=== PATIENT | male | born 2005 | race Caucasian/White ===

== ENCOUNTER 2024-06-12 13:41 | Emergency (ER) | payer OTHER, MEDICAID, SELFPAY ==
[2024-06-12 14:15] VITALS: BP 105/61; PULSE 63; TEMP 36.6; O2SAT 97; BMI 17.0
--- NOTE | 2024-06-12 14:21 | XR_ITS ---
The [address] [address] Patient Name: ELAINE SINGH MRN: [id number] date: 2005 Sex: M Assigned Patient Location: ER Current Patient Location: ER Accession/Order Number: [id number] Exam Date: 06/12/2024 14:24 Report Date: 06/12/2024 14:52 At the request of: HEIKE READ Procedure: XR foot RT min 3V EXAM: XR foot RT min 3V HISTORY: pain COMPARISON: None. TECHNIQUE: 3 views right foot FINDINGS: No acute displaced fracture or dislocation is evident. Lisfranc joint appears congruent on this nonweightbearing study. The midfoot is congruent. XR/XR foot RT min 3V IMPRESSION: Negative radiographic evaluation for fracture. Electronically authenticated by: FRITZ SCHUMACHER Date: 06/12/2024 14:52
--- NOTE | 2024-06-12 15:13 | ED.LOWEXI1 ---
HPI HPI - Extremity Injury (Lower) General Chief Complaint: Extremity Injury, Lower Stated Complaint: pain in lower extremity Time Seen by Provider: 06/12/24 14:49 Source: patient and family Mode of arrival: walk-in History of Present Illness HPI Narrative: Patient is a 18-year-old male with a history of autism who presents to the emergency department for pain in the right medial foot since yesterday. He is accompanied by his mother who provides the history and states that the patient injured his foot. He was playing basketball. Tylenol was given this morning. No other medications. He is not noted to have any swelling, ecchymosis or obvious deformity. Patient is ambulatory Related Data Previous Rx's ?Medication ?Instructions ?Recorded ibuprofen 600 mg tablet 600 mg PO Q8H PRN pain #10 tabs 06/12/24 Allergies Allergy/AdvReac Type Severity Reaction Status Date / Time No Known Drug Allergies Allergy Verified 06/12/24 14:15 Opioid HPI Opioid Management Most Recent Pain and Opioid Data: No Data to Display Review of Systems ROS Constitutional Denies: fever or chills Ears, nose, mouth, and throat Denies: throat pain, nasal discharge or nasal congestion Respiratory Denies: shortness of breath Gastrointestinal Denies: nausea or vomiting Musculoskeletal Reports: extremity pain; Denies: back pain or neck pain Integumentary/Breast Denies: rash or skin pain Neurological Denies: numbness in extremities or weakness in extremities Hematologic/Lymphatic Denies: easy bruising or easy bleeding Exam Narrative Exam Narrative: Gen.: Awake, alert, in no distress Head: Normocephalic, atraumatic ENT: Moist mucous membranes Respiratory: No respiratory distress Extremities: Moves extremities equally, no swelling, ecchymosis or obvious deformity of the right foot with 2+ right DP pulse and normal flexion and extension of the toes of the right foot. No plantar wounds or redness noted. No bony tenderness or obvious deformity of the right ankle or tib-fib Psych: Normal mood and affect Neuro: No focal neuro deficit, developmentally delayed but cooperative Skin: Warm, dry, intact Constitutional Vital Signs, click to edit/add: Last Vital Signs Temp 98 F 06/12/24 14:15 Pulse 63 06/12/24 14:15 Resp 16 06/12/24 14:15 BP 105/61 06/12/24 14:15 Pulse Ox 97 06/12/24 14:15 O2 Del Method Room Air 06/12/24 14:15 Course Vital Signs Vital signs: Vital Signs Temperature 98 F 06/12/24 14:15 Pulse Rate 63 06/12/24 14:15 Respiratory Rate 16 06/12/24 14:15 Blood Pressure 105/61 06/12/24 14:15 Pulse Oximetry 97 06/12/24 14:15 Oxygen Delivery Method Room Air 06/12/24 14:15 Temperature 98 F 06/12/24 14:15 Pulse Rate 63 06/12/24 14:15 Respiratory Rate 16 06/12/24 14:15 Blood Pressure 105/61 06/12/24 14:15 Pulse Oximetry 97 06/12/24 14:15 Oxygen Delivery Method Room Air 06/12/24 14:15 MDM - Extremity Injury (Lower) MDM Narrative Medical decision making narrative: X-rays reviewed by the radiologist with no evidence of fracture or dislocation. Chencho bandage and postop shoe applied and the patient remains neurovascularly intact. Ibuprofen given. Rest, ice, elevate. Return to the ER if symptoms change or worsen SUPERVISED APC VISIT, PHYSICIAN ATTESTATION: Based on the medical record the care appears appropriate. ? Medical Records Attestation: I reviewed the patient's medical records. Imaging Data XR foot: Attestation: I have reviewed the pertinent imaging results. Radiologist's impression: ITS Impressions Foot X-Ray 06/12/24 14:21 IMPRESSION: Negative radiographic evaluation for fracture. Electronically authenticated by: FRITZ SCHUMACHER Date: 06/12/2024 14:52 Discharge Plan Discharge Chief Complaint: Extremity Injury, Lower Clinical Impression: Right foot sprain Patient Disposition: Home, Self-Care Time of Disposition Decision: 15:18 Condition: Good Prescriptions / Home Meds: New ibuprofen 600 mg tablet 600 mg PO Q8H PRN (Reason: pain) Qty: 10 0RF Print Language: Kiswahili Instructions: Foot Sprain (ED) Referrals: CRISTIAN COLLINS [Primary Care Provider] - 1 week
[2024-06-12] MEDS: IBUPROFEN 200 MG/10 ML ORAL.SUSP 520 MG PO (15:25)
--- NOTE | 2024-06-12 15:30 | PC.NURSE ---
phuong wrap applied with post op shoe pt tolerates well
== END 2024-06-12 15:32 | disposition home or self-care (01) ==
PROVIDERS: Emergency Provider Emergency Medicine; PCP Family Medicine
DX: S93.601A Unspecified sprain of right foot, initial encounter (principal); Y93.67 Activity, basketball; F84.0 Autistic disorder
CPT/HCPCS: 73630; 99283

== ENCOUNTER 2024-07-13 05:59 | Emergency (ER) | payer OTHER, MEDICAID, SELFPAY ==
[2024-07-13 06:04] VITALS: BP 120/78; PULSE 66; TEMP 36.9; O2SAT 96; BMI 18.5
--- OUTSIDE RECORDS SUMMARY | 2024-07-13 06:13 | XMS_ITS | CCD ---
Author Organization [facility] CliniSy[facility] Care Team Providers Care Physical Education Instructor Name Role Phone Murali Deidre Haritha Attending Unavailable Murali, Deidre Haritha Referring Unavailable Murali, Deidre Haritha Primary Care Unavailable Wiznitzer, Max Attending Unavailable Murali, Deidre Haritha Referring Unavailable Murali, Deidre Haritha Primary Care Unavailable Murali, Deidre A Unavailable Unavailable Wiznitzer, Max Unavailable Unavailable Murali, Deidre A Unavailable Unavailable Wiznitzer, Max Unavailable Unavailable Splawski, Tory Unavailable Unavailable Murali, Deidre A Unavailable Unavailable Murali, Deidre A Unavailable Unavailable Murali, Deidre A Unavailable Unavailable Wiznitzer, Max Unavailable Unavailable MURALI, DEIDRE Attending Unavailable MURALI, DEIDRE Consulting Unavailable MURALI, DEIDRE Admitting Unavailable Murali, Deidre A Unavailable Unavailable Murali Deidre SORENSON Unavailable Unavailable Hung Amin MD Unavailable Unavailable Murali, Deidre A Unavailable Unavailable Unavailable MD Deidre Carrion Primary Care Provider MD Hung Amin Attending Provider Deidre Carrion A Primary Care Provider Deidre Carrion MD Primary Care Provider Miguel Clements MD Unavailable CALI CARRIONBERCARLOS Tee Attending Unavailable MURALI DEIDRE A Primary Care Unavailable Allergies Allergy Classification Reported Allergen(s) Allergy Type Date of Onset Reaction(s) Facility (8 sources) glutenin; Translations: [GLUTEN] allergy to substance 07-03-2019 [facility] 3 Repository (2 sources) Wheat gluten extract Drug Allergy 07-03-2019 [facility] Medications Completed/Discontinued Medications Medication Drug Class(es) Dates Sig (Normalized) Sig (Original) acetaminophen 21.7 mg/ml / dextromethorphan hydrobromide 0.667 mg/ml / phenylephrine hydrochloride 0.333 mg/ml oral solution (2 sources) Uncompetitive A-nodcbs-C-aspart ate Receptor Antagonist, Sigma-1 Agonist, alpha-1 Adrenergic Agonist Vicks DayQuil Cold & Flu 10-5-325 MG/15ML Oral Liquid Refills: 0 Active cyproheptadine hydrochloride 4 mg oral tablet (5 sources) Start: 0 take 1 tablet by mouth at bedtime Cyproheptadine HCl - 4 MG Oral Tablet TAKE 1 TABLET AT BEDTIME. Quantity: 30 Refills: 3 Tory Sanchez MD Start : 04-Sep-2019 Active 24 hr dexmethylphenidate hydrochloride 15 mg extended release oral capsule (20 sources) Central Nervous System Stimulant Start: 0 take 1 capsule by mouth once daily Dexmethylphenidate HCl ER 15 MG Oral Capsule Extended Release 24 Hour TAKE 1 CAPSULE Daily Quantity: 30 Refills: 0 Eloisa SORENSON, Max Start : 02-Apr-2020 Active Start: 04-02-2020 take 1 capsule by [facility] once daily Dexmethylphenidate HCl ER 15 MG Oral Capsule Extended Release 24 Hour TAKE 1 CAPSULE Daily Quantity: 30 Refills: 0 Eloisa SORENSON, Max Start : 02-Apr-2020 Active Start: 11-30-2019 take 1 capsule by [facility] once daily Dexmethylphenidate HCl ER 15 MG Oral Capsule Extended Release 24 Hour TAKE 1 CAPSULE Daily Quantity: 30 Refills: 0 Eloisa SORENSON, Max Start : 30-Nov-2019 Active Start: 09-02-2019 take 1 capsule by [facility] once daily Dexmethylphenidate HCl ER 15 MG Oral Capsule Extended Release 24 Hour TAKE 1 CAPSULE Daily Quantity: 30 Refills: 0 Eloisa SORENSON, Max Start : 02-Oct-2019 Active Start: 08-15-2019 take 1 capsule by [facility] once daily in the morning Dexmethylphenidate HCl ER 10 MG Oral Capsule Extended Release 24 Hour TAKE 1 CAPSULE Every morning Quantity: 30 Refills: 0 Eloisa SORENSON, Max Start : 15-Aug-2019 Active Start: 08-15-2019 take 1 capsule by [facility] once daily in the morning Dexmethylphenidate HCl ER 10 MG Oral Capsule Extended Release 24 Hour TAKE 1 CAPSULE Every morning Quantity: 30 Refills: 0 Eloisa SORENSON, Max Start : 15-Aug-2019 Active Start: 12-16-2018 take 1 capsule by [facility] once daily in the morning Dexmethylphenidate HCl ER 10 MG Oral Capsule Extended Release 24 Hour TAKE 1 CAPSULE DAILY IN THE MORNING. Quantity: 30 Refills: 0 Eloisa SORENSON, Max Start : 15-Jul-2019 Active multivitamin tablet (1 source) take 1 tablet by mouth once daily multivitamin tablet Take 1 tablet by mouth once daily. 0 Active Comment on above: Take 1 tablet by prud[facility] once daily. sertraline 25 mg oral tablet (1 source) Serotonin Reuptake Inhibitor Start: 8 take 1 tablet by mouth once daily Sertraline HCl - 25 MG Oral Tablet TAKE 1 TABLET BY MOUTH EVERY DAY DIRECTED Quantity: 30 Refills: 5 Eloisa SORENSON, Max Start : 03-Feb-2018 Active 1.5 ml somatropin 10 mg/ml pen injector (9 sources) Recombinant Human Growth Hormone Start: 1 Norditropin FlexPro 15 MG/1.5ML Subcutaneous Solution Pen-injector Quantity: 6 Refills: 0 Ordered: 23-Aug-2020 DO Start : 22-Aug-2020 Active Problems Active Problems Problem Classification Problem Date Documented Da te Episodic/Chronic Allergic reactions (9 sources) Gluten sensitivity; Translations: [Celiac disease] Resolved: 07-29-2020 02-06-2024 Chronic Allergic reactions (8 sources) Eczema; Translations: [Gluten sensitivity] Episodic Anxiety disorders (20 sources) Anxiety; Translations: [Anxiety state, unspecified] Onset: 2023 2023 Chronic Attention-deficit conduct and disruptive behavior disorders (17 sources) Attention deficit hyperactivity disorder; Translations: [Attention deficit disorder with hyperactivity] Onset: 2023 2023 Chronic Blindness and vision defects (16 sources) Wears glasses; Translations: [Other specified conditions influencing health status] Episodic Developmental disorders (20 sources) Speech delay; Translations: [Intellectual disability] Onset: 11-03-2009 11-03-2009 Chronic Disorders usually diagnosed in infancy childhood or adolescence (20 sources) Tic; Translations: [Tic disorder] Onset: 2023 2023 Chronic Genitourinary symptoms and ill-defined conditions (2 sources) Urinary incontinence; Translations: [Urinary incontinence] Chronic Immunizations and screening for infectious disease (2 sources) Patient encounter status; Translations: [Other specified vaccination] Episodic Miscellaneous mental health disorders (1 source) Eating disorder; Translations: [Other specified eating disorder] Onset: 02-05-2007 04-09-2010 Chronic Other bone disease and musculoskeletal deformities (2 sources) Delayed bone age; Translations: [Other specified disorders of bone density and structure, unspecified site] Onset: 06-15-2020 06-16-2021 Episodic Other congenital anomalies (7 sources) Chromosomal abnormality, unspecified; Translations: [Genetic disorder] Chronic Other congenital anomalies (10 sources) [id number] microdeletion syndrome; Translations: [Other specified congenital anomalies] Onset: 2023 07-30-2023 Chronic Other congenital anomalies (1 source) 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; 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, unspecified] Onset: 09-13-2008 09-13-2008 Chronic Other congenital anomalies (1 source) Chromosomal disorder; Translations: [Chromosomal abnormality, unspecified] Onset: 11-29-2008 11-29-2008 Chronic Other congenital anomalies (1 source) Congenital anomaly of face; 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, unspecified] Onset: 08-06-2019 08-06-2019 Chronic Other gastrointestinal disorders (1 source) Celiac disease; Translations: [Celiac disease] Onset: 08-06-2019 08-06-2019 Chronic Other nutritional; endocrine; and metabolic disorders (11 sources) Decreased body mass index; Translations: [Body Mass Index, pediatric, less than 5th percentile for age] Onset: 06-15-2020 06-16-2021 Episodic Other nutritional; endocrine; and metabolic disorders (2 sources) Short stature disorder; Translations: [Short stature (child)] Onset: 08-06-2019 06-16-2021 Episodic Other nutritional; endocrine; and metabolic disorders (2 sources) Body mass index (BMI) pediatric, less than 5th percentile for age; Translations: [Body mass index (BMI) pediatric, less than 5th percentile for age] Onset: 07-30-2023 Episodic Residual codes; unclassified (6 sources) Daytime somnolence; Translations: [Hypersomnia, unspecified] Onset: 2023 2023 Chronic Residual codes; unclassified (6 sources) Staring; Translations: [Transient alteration of awareness] Onset: 2023 2023 Episodic Residual codes; unclassified (1 source) History of adenoidectomy; Translations: [Acquired absence of other organs] 02-06-2024 Episodic Screening and history of mental health and substance abuse codes (16 sources) H/O: psychiatric disorder; Translations: [Personal history of other mental disorders] Episodic Unclassified (2 sources) CONTACT W/AND (SUSP) EXPOS COVID-19; Translations: [CONTACT W/AND (SUSP) EXPOS COVID-19] Onset: 10-28-2020 Viral infection (1 source) COVID-19; Translations: [COVID-19] Onset: 10-28-2020 Past or Other Problems Problem Classification Problem Date Documented Da te Episodic/Chronic Genitourinary symptoms and ill-defined conditions (14 sources) H/O: urinary disease; Translations: [Personal history of other specified urinary system disorders] Resolved: 09-04-2019 Episodic Other congenital anomalies (1 source) [id number] microdeletion syndrome; Translations: [Chromosome 3s25-q16 microdeletion syndrome] Other gastrointestinal disorders (20 sources) Abdominal distension, gaseous; Translations: [Flatulence, eructation, and gas pain] Resolved: 06-19-2016 Episodic Other hematologic conditions (1 source) ESR raised; Translations: [Elevated erythrocyte sedimentation rate] Onset: 06-15-2020 06-15-2020 Episodic Other infections; including parasitic (5 sources) H/O: viral illness; Translations: [Personal history of other infectious and parasitic diseases] Resolved: 12-27-2021 Episodic Other inflammatory condition of skin (10 sources) Seborrheic dermatitis of scalp; Translations: [Seborrhea capitis] Onset: 2023 Resolved: 2023 2023 Episodic Other lower respiratory disease (5 sources) History of clinical finding in subject; Translations: [Personal history of other diseases of respiratory system] Resolved: 12-27-2021 Episodic Other lower respiratory disease (1 source) Snoring; Translations: [Snoring] Onset: 08-18-2009 08-18-2009 Episodic Other male genital disorders (1 source) Disorder of male genital organ; Translations: [Other hydrocele] Onset: 08-06-2019 08-26-2019 Episodic Other nervous system disorders (1 source) Other symbolic dysfunctions; Translations: [Other symbolic dysfunction] Onset: 09-13-2008 09-13-2008 Episodic Other nutritional; endocrine; and metabolic disorders (20 sources) Feeding problem; Translations: [Feeding difficulties and mismanagement] Resolved: 06-19-2016 Episodic Other nutritional; endocrine; and metabolic disorders (20 sources) Pediatric failure to thrive; Translations: [Failure to thrive] Resolved: 06-19-2016 Episodic Other nutritional; endocrine; and metabolic disorders (1 source) Delayed milestone; Translations: [Delayed milestone in childhood] Onset: 09-13-2008 09-13-2008 Episodic Other skin disorders (14 sources) Personal history of diseases of the skin and subcutaneous tissue; Translations: [H/O: eczema] Resolved: 09-04-2019 Episodic Other skin disorders (10 sources) Disorder of nail; Translations: [Unspecified disease of nail] Onset: 2023 Resolved: 2023 2023 Episodic Other upper respiratory infections (20 sources) Acute pharyngitis; Translations: [Acute pharyngitis, unspecified] Onset: 10-28-2020 Resolved: 12-27-2021 Episodic Residual codes; unclassified (16 sources) Disturbance in sleep behavior; Translations: [Sleep disturbance, unspecified] Resolved: 06-19-2016 Episodic Unclassified (8 sources) Intellectual disability; Translations: [Intellectual disability] Unclassified (8 sources) Decreased body mass index; Translations: [BMI (body mass index), pediatric, less than 5th percentile for age] Unclassified (8 sources) Patient encounter status; Translations: [Encounter for routine child health examination without abnormal findings] Unclassified (1 source) CONTACT W/AND (SUSP) EXPOS COVID-19; Translations: [CONTACT W/AND (SUSP) EXPOS COVID-19] Onset: 10-24-2020 Viral infection (9 sources) Other specified viral infection; Translations: [Disease caused by 2019-nCoV] Resolved: 11-09-2020 Episodic NEGATED: Highlighted row has not occurred!Residual codes; unclassified (20 sources) Disease Episodic Results Test Name Value Interpretation Reference Range Facility Office Visit ([facility] [place])on 12-27-2021 Follow-up visit Diagnoses/Problems Staring episodes (780.02) (R40.4) Excessive daytime sleepiness (780.54) (G47.19) *Orders Excessive daytime sleepiness Pediatric - Sleep Medicine Referral Evaluation and Treatment Evaluate AND Treat Status: Hold For - Scheduling Requested for: 27Dec2021 AMA Intake Activity Log Entry by Jeanie Biggs ([email or web address]) on 2022-01-02 09:08 Status Change: To Scheduling in Process - Sending Letter in 7 days, LVM Excessive daytime sleepiness (780.54) (G47.19) Patient Discussion/Summary Elaine had a staring spell. While a seizure was suspected, he has daytime sleepiness that suggests that the event may be sleep related. With his sleep history (snoring, gasps, and movement), it is worthwhile to evaluate his sleep despite past assessments. 1. Refer to Pediatric Sleep Medicine. 2. Watch for other paroxysmal events. 3. Follow up as needed. Chief Complaint Patient here for follow up visit. Accompanied by mother. History of Present Illness Elaine is a 15 year old boy with ADHD and anxiety. He is off sertraline 25 mg and dexmethylphenidate ER 15 mg qAM He is able to attend in school with the more relaxed classroom environment. He speaks in a soft voice. He interacts with classmates. He picks at his cuticles or knuckles. Elaine had episode of staring with no response during a speech therapy group session. Subsequent EEG was normal. Elaine goes to bed around 10:30 PM with sleep onset soon afterwards. He gets up at 5 AM (when father going to work) and falls back to sleep on the couch, getting up at 6 AM for school. He wants to nap after school. He moves a lot in sleep and is crabby when awakening. He had a sleep study for snoring that was reportedly normal. He continues to have excessive daytime sleepiness. Elaine finished 11th grade in a self contained classroom and an IEP with in person classes this school year. 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 Review of Systems All other systems have been reviewed with no other pertinent positives except reintroduction of gluten with tolerance and use of cyproheptadine for appetite enhancement with a positive effect on sleep. 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 He is on growth hormone replacement. He had a normal sleep study. 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) Encounter for routine child health examination without abnormal findings (V20.2) (Z00.129) History of Failure to thrive (0-17) (783.41) (R62.51) History of Feeding difficulties (783.3) (R63.30) History of Gaseous abdominal distention (787.3) (R14.0) Intellectual disability (319) (F79) Nail lesion (703.9) (L60.9) Seborrhea capitis in pediatric patient (690.11) (L21.0) Tic (307.20) (F95.9) Anxiety (300.00) (F41.9) Attention deficit hyperactivity disorder (ADHD) (314.01) (F90.9) History of Failure to thrive (0-17) (783.41) (R62.51) History of Feeding difficulties (783.3) (R63.3) Eczema (692.9) (L30.9) Urinary incontinence (788.30) (R32) Past Medical History Acute pharyngitis, unspecified etiology (462) (J02.9) Resolved Date: 03 Nov 2020 History of Acute pharyngitis, unspecified etiology (462) (J02.9) Resolved Date: 30 Oct 2016 Anxiety (300.00) (F41.9) COVID-19 virus infection (079.89) (U07.1) Resolved Date: 09 Nov 2020 History of Failure to thrive (0-17) (783.41) (R62.51) Resolved Date: 19 Jun 2016 History of Feeding difficulties (783.3) (R63.30) Resolved Date: 19 Jun 2016 History of Gaseous abdominal distention (787.3) (R14.0) Resolved Date: 19 Jun 2016 History of Gluten intolerance (579.0) (K90.41) Resolved Date: 29 Jul 2020 History of attention deficit hyperactivity disorder (ADHD) (V11.8) (Z86.59) History of eczema (V13.3) (Z87.2) Resolved Date: 04 Sep 2019 History of sore throat (V12.69) (Z87.09) History of urinary incontinence (V13.09) (Z87.898) Resolved Date: 04 Sep 2019 History of viral infection (V12.09) (Z86.19) History of Sleep disturbances (780.50) (G47.9) Resolved Date: 19 Jun 2016 History of Speech delay (315.39) (F80.9) History of Tic disorder (307.20) (F95.9) History of URI, acute (465.9) (J06.9) History of Wears glasses (V49.89) (Z97.3) Anxiety (300.00) (F41.9) History of Failure to thrive (0-17) (783.41) (R62.51) History of Feeding difficulties (783.3) (R63.3) Surgical History History of Adenoidectomy History of Ear Pressure Equalization Tube, Insertion, Bilaterally History of Surgery Tunica Vaginalis Excision Of Hydrocele Left Family History Family history of migraine headaches (V17.2) (Z82.0) Family history of systemic lupus erythematosus (V19.4) (Z82.69) Family history of asthma (V17.5) (Z82.5) Family history of cardiac disorder (V17.49) (Z82.49) Family history of type 2 diabet (more content not included)... Normal [facility] Pediatric Medicine 12-17on 0 11-16-2021 Pediatric Medicine 06-30 Diagnosis/Problems Assessed Sore throat (462) (J02.9) URI, acute (465.9) (J06.9) Viral syndrome (079.99) (B34.9) Patient Discussion/Summary call back if worse or not improved as discussed ibuprofen as needed for pain and fever. FOLLOW-UP: Call or return to clinic if worse, new symptoms, or not improved in 2-[address]. [address] History of Present Illness dad patient with complaint of [ ST] last two dayss some malaise congestion mom looked back and seemed red swallowing ok no drooling no breathing diff lg fever 100 onset 2 day can drink worse with swallowing General: fever 100 days ; decreased appetite; normal PO fluids; normal activity; sleeping ok. 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) Encounter for routine child health examination without abnormal findings (V20.2) (Z00.129) History of Failure to thrive (0-17) (783.41) (R62.51) History of Feeding difficulties (783.3) (R63.30) History of Gaseous abdominal distention (787.3) (R14.0) Intellectual disability (319) (F79) Nail lesion (703.9) (L60.9) Seborrhea capitis in pediatric patient (690.11) (L21.0) Tic (307.20) (F95.9) Past Medical History Problems Acute pharyngitis, unspecified etiology (462) (J02.9) Resolved Date: 03 Nov 2020 History of Acute pharyngitis, unspecified etiology (462) (J02.9) Resolved Date: 30 Oct 2016 Anxiety (300.00) (F41.9) COVID-19 virus infection (079.89) (U07.1) Resolved Date: 09 Nov 2020 History of Failure to thrive (0-17) (783.41) (R62.51) Resolved Date: 19 Jun 2016 History of Feeding difficulties (783.3) (R63.30) Resolved Date: 19 Jun 2016 History of Gaseous abdominal distention (787.3) (R14.0) Resolved Date: 19 Jun 2016 History of Gluten intolerance (579.0) (K90.41) Resolved Date: 29 Jul 2020 History of attention deficit hyperactivity disorder (ADHD) (V11.8) (Z86.59) History of eczema (V13.3) (Z87.2) Resolved Date: 04 Sep 2019 History of urinary incontinence (V13.09) (Z87.898) Resolved Date: 04 Sep 2019 History of Sleep disturbances (780.50) (G47.9) Resolved Date: 19 Jun 2016 History of Speech delay (315.39) (F80.9) History of Tic disorder (307.20) (F95.9) History of Wears glasses (V49.89) (Z97.3) Surgical History Problems History of Adenoidectomy History of Ear Pressure Equalization Tube, Insertion, Bilaterally History of Surgery Tunica Vaginalis Excision Of Hydrocele Left Family History Mother Family history of migraine headaches (V17.2) (Z82.0) Maternal Aunt Family history of systemic lupus erythematosus (V19.4) (Z82.69) Paternal Uncle Family history of asthma (V17.5) (Z82.5) Multiple Family Members Family history of cardiac disorder (V17.49) (Z82.49) Paternal Relatives Family history of type 2 diabetes mellitus (V18.0) (Z83.3) Social History Problems Brother Drinks city water Lives with parents No tobacco/smoke exposure Pets/Animals: Cat Pets/Animals: Dog Allergies Medication No Known Drug Allergies Recorded By: Hung Amin; 04/04/2014 7:26:22 PM Current Meds Medication NameInstruction Norditropin FlexPro 15 MG/1.5ML Subcutaneous Solution Pen-injector Vitals Vital Signs Recorded: [id number] 02:35PM Npwwlypikkb16.7 F [id number] lb 6 oz 2-20 Weight Percentile1 % Physical Exam General Appearance: not ill appearing, moves well, alert. big smile polite HEENT: Eyes: non-injected. Ears: tympanic membranes pearly w/ good landmarks. Nose: clear watery dc Oropharynx: mild red, no exudate, and tonsils not enlarged. pnd, tongue wnl Neck: supple, no lymphadenopathy. Cardiovascular System: Heart Sounds: RRR with no murmur. Lungs: Auscultation: no wheezing, rales/crackles, or retractions and clear to auscultation bilaterally. Abdomen: Palpation: no tenderness. Skin: clear Signatures Electronically signed by : Miguel Clements MD; Nov 16 2021 3:02PM EST (Author) Normal [facility] EEG awake asleepon 2 EEG awake asleep [facility] Main [place] [address] [place] [id number] Electroencephalogram Report Signed Patient: Elaine Singh MR#: [id number] 80 : 2005 Acct:[id number] Age/Sex: 16 / M ADM Date: 10/13/21 Loc: Room: Type: [facility] Attending Dr: Hung Amin MD Ordering Provider: Hung Amin MD Date of Service: 10/13/21 EEG/EEG awake asleep: q93.88 Copies to: DO Hung Oreilly MD A 1 hour long EEG. 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 Not clear based on documentation provided to me whether or not he has history of seizures. No seizure medications are listed. TECHNICAL INFORMATION: This 1 hour and 47 second long EEG was performed using the standard International 10-20 system of lead placement. All data was obtained digitally and is available for reformatting and remontaging. Simultaneous electrocardiogram monitoring was performed during the recording. DESCRIPTION OF EEG RECORDING: Posterior dominant rhythm was typically apparent, was of high amplitude, was generally 10 Hz, and appropriately attenuated with eye opening. There was intermittent bifrontal slowing to about 4.5 Hz lasting for several seconds. Electrical activity is generally of symmetric amplitude between hemispheres and from anterior to posterior. Photic stimulation was used as an activating procedure and resulted in anterior photic driving at the low frequency flashes and no concerning associated epileptiform activity. Hyperventilation was not performed. A large amount of electrographic sleep was observed, with high amplitude vertex waves, K complexes, and spindle activity. No definitive epileptiform activity was seen throughout the entirety of the recording. No significant or interpretation limiting artifact seen. IMPRESSION: Mildly abnormal 1 hour long EEG. Background rhythm generally normal, but was interrupted by infrequent intermittent bifrontal slowing. No seizures were seen. No definitive epileptiform activity was seen. This study did not offer any definitive evidence of an increased propensity for seizure, but if there is high suspicion, consider repeat study or more prolonged studies. Transcribed By: MIO 10/17/21 1627 Dictated By: Gagan Patterson DO 10/16/21 1734 Signed By: 10/18/21 1635 [facility] OBSOLETEon 06-22-2021 OBSOLETE Refill (PENDMN) ELAINE SINGH ([id number]) 3 M Date Time Provider Department 06/22/21 HAO WILKINS PENDMN During your visit today, we recorded the following information about you: Avelina Vallejo 06/22/2021 2:32 PM Signed Patient has been identified by name and date of : Yes Pending Prescriptions Disp Refills NORDITROPIN FLEXPRO 15 MG/1.5 ML (10 MG/ML) SUBCUTANEOUS PEN INJECTOR 6 mL 7 Sig: INJECT 1.6 MG UNDER THE SKIN SIX DAYS PER WEEK. MARTITA: No RX INSTRUCTIONS: Patient aware RX will be sent to pharmacy. No need to notify patient. Date of last visit: 01/12/2021 Date of next endo appointment: NA 30 day supply. of medication requested Pharmacy: [facility] Avelina Vallejo Allergies As of Date: 06/22/2021 Noted Allergy Reaction GLUTEN 07/03/2019 16 - Unknown Comments: Gluten sensitivity Date Reviewed: 01/12/2021 Reviewed by: Kylee Garduno) MARY Muñoz - Fully Assessed Reason for Visit: Refill Request [94] Visit Diagnosis:Short stature disorder [R62.52] Order(s):Somatropin (NORDITROPIN FLEXPRO) 15 mg/1.5 mL (10 mg/mL)INJECT 1.6 MG UNDER THE SKIN SIX DAYS PER WEEK.Disp: 6 mLRfl: 7 Prescriptions as of 06/22/2021 - Somatropin (NORDITROPIN FLEXPRO) 15 mg/1.5 mL (10 mg/mL) INJECT 1.6 MG UNDER THE SKIN SIX DAYS PER WEEK. - multivitamin tablet Take 1 tablet by mouth once daily. 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 Medications Discontinued During This Encounter Prescriptions - Somatropin (NORDITROPIN FLEXPRO) 15 mg/1.5 mL (10 mg/mL) (Discontinued) INJECT 1.6 MG UNDER THE SKIN SIX DAYS PER WEEK. 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 RESULT: Bone age according to the standards of Jose Luis Gonzalez and Marquez Peacockelizabeth (ISBN [phone] [facility] Control Number: [id number]) is 13 years. Chronologic age is 15 year and 11 months. Patient's bone age is 2.6 standard deviations below the chronologic age. IMPRESSION: Delayed bone age. Timber Framer Helper: DANN Transcribe Date/Time: Jun 16 2021 4:48P Dictated by : LAZARA MAX MD This examination was interpreted and the report reviewed and electronically signed by: LAZARA MAX MD on Jun 16 2021 4:50PM EST [id number] Normal [facility] 06-09-2021 CNPN Telephone (PENDMN) ELAINE SINGH ([id number]) 3 M T Date Time Provider Department 06/09/21 HAO WILKINS During your visit today, we recorded the following information about you: Nicki Lainez [facility] 06/09/2021 8:28 AM Signed Patient's Name: Elaine Singh Caller's Name: Mom Relation to Patient: Mom Reason for Call: Mom called and stated she placed refill for Nordotropin, [facility] informed her that pharmacy has not been able to get Norditropin Flexpro 15mg pen since April. Please advise what dosage patient can have. Mom sts that she doesn't want lapse in medication. Nicki Lainez [facility] Hao Wilkins MD 06/09/2021 9:05 AM Signed Dose is 1.6mg x6 days--- appreciate nurses putting in scripts for me to sign Rachel Mendez RN 06/09/2021 10:09 AM Signed I called [facility]. They have 15mg pen in stock. They stated that they could not get in touch with family for all of April and therefore script was placed on hold. They have current dosing for Norditropin. Mom notified. Nicki Lainez [facility] 06/09/2021 12:46 PM Signed Patient has been identified by name and date of : Yes Type of form: Prior Authorization -Norditropin FlexPro 15MG/1.5 Pen-injector Form received via: Fax When form is completed, fax form to fax number provided. [facility] Rachel Mendez RN 06/09/2021 4:19 PM Signed PA started on Cover My Meds however pt bone age has not been completed. I spoke with mom. They will complete the bone age and let us know. Mom aware that we will not be doing PA until we hear from her. Avelina Yoni 06/19/2021 3:00 PM Signed Patient have bone age done on 06/16. Mom asking for results and calling to let us know so we can move forward with PA Haritha Valerio RN 06/19/2021 3:59 PM Signed Norditropin PA completed/submitted on CoverMyMeds. Hao Wilkins MD 06/20/2021 8:32 AM Signed His bones looked like a 13 year old so he will likely have at least 2 years where he can be on growth hormone. The nurses submitted the prior auth as shown Thanks for calling family to let them know Avelina Yoni 06/20/2021 10:28 AM Signed Spoke with mom, mom expressed understanding Haritha Valerio RN 06/21/2021 11:03 AM Addendum Norditropin PA approved, valid 05/20/21-06/20/22. . GH list updated. Nicki Motaers [facility] 11/20/2021 4:38 PM Signed Mom states insurance changed to [place] back in September and she was told her co-pay would be $2000.00 verse $40. I transferred mom to call center to give updated insurance information. Haritha Valerio RN 11/21/2021 2:36 PM Signed Called AND spoke with mom. She has tried to update insurance, but has been transferred to several different people in the process. The last workforce services representative she spoke with stated that she should just schedule an appointment and while they schedule the appt, they can update insurance at that time. Did recommend to mom that they schedule an appointment as he was last seen in January 2021. [employer]: [id number] [employer] member number: [id number] Pharmacy Services: [phone] Discussed insurance coverage with mom - issue could be a new PA is needed, could be they have a high deductible plan AND the deductible has to be met before insurance will pay for their part. Mom does have the information to [facility] to speak with them re: co-pay assistance. Message also sent to Angela at [facility] requesting she look into this as well. Haritha Valerio RN 11/23/2021 3:28 PM Signed Per Angela at [facility]: So, if I?m looking at the new plan correctly ? they have a high out of pocket amount and that is probably why the high copay. She can go into the link below and apply for the copay card; she then needs to call [employer] back with the copay card info. ?. due to the demand in calls for copay assistance, there is now a website we direct patient/parents to https://www.[employer].ar m/ranjit/savings-c srinivas.html This allows the parents immediate access to the information to give to the pharmacy and to order medication faster. Called AND spoke with mom. Provided her the information above. Mom stated she did look into their plan and their annual hmr-yo-irviyr max excludes specialty medications. Mom will sign up for the [employer] card AND also look into other co-pay assistance. Allergies As of Date: 06/09/2021 Noted Allergy Reaction GLUTEN 07/03/2019 16 - Unknown Comments: Gluten sensitivity Date Reviewed: 01/12/2021 Reviewed by: Kylee Garduno) MARY Muñoz - Fully Assessed Reason for Visit: 2021 GROWTH HORMONE [Other] Prescriptions as of 11/23/2021 - Somatropin (NORDITROPIN FLEXPRO) 15 mg/1.5 mL (10 mg/mL) INJECT 1.6 MG UNDER THE SKIN SIX DAYS PER WEEK. - multivitamin tablet Take 1 tablet by mouth once daily. Problem List As Of D (more content not included)... Normal [facility] OBSOLETEon 04-22-2021 OBSOLETE Refill (PDENAM) ELAINE SINGH ([id number]) 3 M Date Time Provider Department 04/22/21 HAO WILKINS PDENAM During your visit today, we recorded the following information about you: Avelina Cook 04/24/2021 8:58 AM Signed Patient has been identified by name and date of : Yes Pending Prescriptions Disp Refills NORDITROPIN FLEXPRO 15 MG/1.5 ML (10 MG/ML) SUBCUTANEOUS PEN INJECTOR 6 mL 7 Sig: INJECT 1.6 MG UNDER THE SKIN SIX DAYS PER WEEK. MARTITA: No RX INSTRUCTIONS: Patient aware RX will be sent to pharmacy. No need to notify patient. Date of last visit: 01/12/2021 Date of next endo appointment: NA 30 day supply. of medication requested Pharmacy: [facility] Avelina Vallejo Allergies As of Date: 04/22/2021 Noted Allergy Reaction GLUTEN 07/03/2019 16 - Unknown Comments: Gluten sensitivity Date Reviewed: 01/12/2021 Reviewed by: Kylee Muñoz Ma - Fully Assessed Reason for Visit: Refill Request [94] Visit Diagnosis:Short stature disorder [R62.52] Order(s):Somatropin (NORDITROPIN FLEXPRO) 15 mg/1.5 mL (10 mg/mL)INJECT 1.6 MG UNDER THE SKIN SIX DAYS PER WEEK.Disp: 6 mLRfl: 7 Prescriptions as of 04/24/2021 - Somatropin (NORDITROPIN FLEXPRO) 15 mg/1.5 mL (10 mg/mL) INJECT 1.6 MG UNDER THE SKIN SIX DAYS PER WEEK. - multivitamin tablet Take 1 tablet by mouth once daily. 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 Medications Discontinued During This Encounter Prescriptions - Somatropin (NORDITROPIN FLEXPRO) 15 mg/1.5 mL (10 mg/mL) (Discontinued) Take 1.6mg under the skin 6 days a week Encounter Status:Closed by HARESH LEIVA on 04/24/21 Normal [facility] CNOVon 01-12-2021 CNOV Office Visit (PDENAM ) ELAINE SINGH ([id number]) 3 M Date Time Provider Department 01/12/21 4:00 PM HAO WILKINS During your visit today, we recorded the following information about you: Pulse Blood pressure Weight Height 80/minute 92/64 41.5 kg 1.636 m Hao Wilkins MD 01/12/2021 4:08 PM Signed [facility] Department of Pediatric Endocrinology Date of Service: January 12, 2021 PCP: Deidre Carrion MD Informant: Mother and Patient Records/charts: Reviewed I had the pleasure of seeing Elaine Singh, a 15 year old 5 month old male in our endocrinology clinic at [facility] For followup regarding their short stature managed on rGH 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 Past evaluations For (or likely affecting) growth include: -assessed by Dr Elizondo over 3 years ago (Jun 2015)-- initial screening was WNL. -previously evaluated by Dr Sanchez (peds GI at )-- scope confirmed celiac; has been on gluten free diet x2yrs; have not been seen by GI in many years -on ADHD meds since age 7y; last time meds with titrated was 2yrs -UDT and hydrocele requring orchidopexand hydrocelectomy y in 2014 -had recent followup with adult care manager Dr Mixon in 2018 (who referred to endo); he notes In addition, reviewed that based on 2017 ASCO publication, promoter region variants in PTEN gene have not been associated with increased risk of cancer. Hence by current evidence based guidelines, GH therapy in not contraindicated for Elaine. Jul 2019- initial endo consult with Dr Wilkins. AGA. Obie 2 with Right teste ~6-8 cc with papable bogginess likely consistent with hydrocele; left teste ~5-6cc with soft/mushy consistency Aug 2019- seen by urology October 2019- mom expressed concern re snoring and previous inconclusive sleep study. We agreed to do sleep study before starting rGH December 2019- sleep study completed. As per Dr Nam's note from December 30, 2019: Outside PSG shows AHI 2.0 (oAHI 1.7) which is borderline to mild sleep apnea. Spo2 jorge was 89%. Reviewed results w/ mom. Again, while no guidelines exist for PSG prior to growth hormone in pt without prader willi, this is overall a reassuring test. At this time just recommend to monitor symptoms while on growth hormone. If snoring increases or witnessed apneas, would consider repeat testing. .... Recommend monitoring and returning if hypersomnia/excessive daytime sleepiness is problematic. Discussed this would involve weaning off any meds that affect sleep (ADHD meds and periactin) x 2 weeks, actigraphy x 2 weeks, then PSG/MSLT. Jun 2020- GV 9.1cm/y Interval Hx: Last visit was consultation in Jun 2020. he has been on growth hormone supplementation since December 2019 (delayed start due to sleep study he has been doing well since then and he or his parent(s) do not have any active concerns at this time. Growth velocity since last visit 10 Cm/year (compared to [facility] 2019 height) -- this is >97%ile for age/sex-- height is currentl y at 8 %ile (Z= -1.44) -parents note he is getting taller; needing new clothes because pants short etc Growth hormone: Product: Norditropin Dose: 1.6 mg IM dailyx 6 days a week (0.25 mg/kg/week) Dose administered by: parents Issues with injection: none Doses missed per week: none GH ROS Headaches: no Hip pain: no Knee pain: no Jaw pain: no Polyuria: no Polydipsia: no Headaches: no Change in vision: no Pain abdomen: no Labs: Last IGF 1 done: Jul 2019 prior to starting rGH Last Bone Age X ray: Jul 2019 prior to starting rGH +vit D insufficiency-- advised 1999iu OTC-- mom does not recall hearing this so hasn't started yet +low BMI-- advised to FU with Dr Sanchez at Puberty continues to progress; there was a discrepency between bone age (delayed) and pubertal status but gonadotropins and testosterone levels appropriate. 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 [facility] Covid-19 PCR (CVDTBH)on 10-13 SARS-CoV-2 (COVID-19) RNA NAKUL+probe Ql (Unsp spec) Detected Abnormal NOT DETECTED [facility] Comment on above: Result Comment: This test is not yet kevin roved or cleared by the [place] FDA. When there are no FDA-approved or cleared tests available, and other criteria are met, FDA can make tests available under an emergency access mechanism called an Emergency Use Authorization (EUA). The EUA for this test is supported by the Director Of Operations For Therapy of Health and Human Service's (HHS's) declaration that circumstances exist to justify the emergency use of in vitro diagnostics for the detection and/or diagnosis of the virus that causes COVID-19. This EUA will remain in effect (meaning this test can be used) for the duration of the COVID-19 declaration justifying emergency of IVDs, unless it is terminated or revoked by FDA (after which the test may no longer be used). Performed By: #### [facility] #### [facility] [address] [place] [address] Leatha Austin Rapid Strepon 10-24-2020 S. pyogenes Ag Ql (Throat) Negative [facility] Work Phone: PROGRESSon 06-15-2020 PROGRESS HNO ID: [id number] Author: Lb () Dillon Santana Service: ? Author Type: Speech And Drama Teacher Type: Progress Notes Filed: 06/15/2020 10:25 AM Note Text: Radiology Service Progress Note PATIENT NAME: Elaine Singh DATE OF SERVICE: June 15, 2020 TIME: 10:23 AM PATIENT IDENTITY VERIFICATION COMPLETED USING TWO (2) IDENTIFIERS: Name and Date of confirmed by identification band and Name and Date of obtained from a relative, guardian or prior caregiver.. FALL SCREENING: Has the patient had 2 falls in the last year or 1 fall with injury or currently using an Ambulatory Assistive Device (Walker, Cane, Wheelchair, Crutches, etc.)? No PATIENT GENDER DATA: Male PATIENT RELEVANT IMPLANT DATA REVIEWED: Not Applicable RADIOLOGY DEPARTMENT: General X-ray: Exam(s) Completed: Upper Extremity X-Ray(s): Hand, left : BONE AGE PERIPHERAL IV DATA: Not applicable SIGNED BY: RT Marivel June 15, 2020 10:23 AM [facility] XR BONE AGEon 06-15-2020 XR BONE AGE * * *Final Report* * * DATE OF EXAM: Jun 15 2020 10:27AM X [id number] - XR BONE AGE / PROCEDURE REASON: Delayed bone age * * * * Physician Interpretation * * * * EXAM XR BONE AGE EXAM DATE: 06/15/2020 10:27 AM CLINICAL HISTORY: 14 years and 10 months Male with Delayed bone age ; Bone age study. : 2005 COMPARISON: 08/06/2019 TECHNIQUE: A single frontal view of the left hand and wrist was obtained for determination of bone age. RESULT: Bone age according to the standards of Greulich and Franklin is 12 years and 6 months. Chronologic age is as listed above. One standard deviation from the mean is 11.32 months. IMPRESSION: Delayed bone age (2.5 standard deviations below the mean). Timber Framer Helper: DANN Transcribe Date/Time: Jun 15 2020 10:43A Dictated by : CANDIDA DESHPANDE DO This examination was interpreted and the report reviewed and electronically signed by: LAZARA MAX MD on Jun 15 2020 11:02AM EST [id number] [facility] PROGRESSon 12-30-2019 PROGRESS HNO ID: [id number] Author: Aida Alcaraz Service: ? Author Type: Physician Type: Progress Notes Filed: 12/30/2019 3:12 PM Note Text: PEDIATRIC SLEEP FOLLOW UP VISIT SERVICE DATE: 12/30/2019 SERVICE TIME: 2:30 pm Accompanied by: mother Informant: Mother Elaine is seen via a virtual Distance Health visit today via [employer] technology due to the COVID19 pandemic and with the parent/patient's verbal consent. The visit is conducted synchronously in real-time. Summary of clinical course: This is a 14 year old male with short stature, genetic mutation of unclear significance, celiacs, ADHD, with the following sleep problems: snoring Initial presentation to sleep medicine: 11/24/19 Presenting complaints: snoring, need for growth hormone. Hx of adenoidectomy. Snoring is loud, every night, +observed apnea spells and coughing, + mouth breathing at night, + nasal congestion, + dry mouth, no morning headaches. Falling asleep throught the day, was napping every day after school jacek every day x [address] sport which would not allow for naps but now with covid napping daily. Naps are not refreshing if woken up, but seems refreshed if he wakes on his own.Falls asleep in car if > 30 min, falls asleep whenever he is not moving , has fallen asleep in the hallway. Still that sleepy even when getting sufficient sleep. Modified epworth = 17 Cataplexy: Laughes so hard he ivory on rare occasion per mom, no mild symptoms such as head drop mouth drop ptosis Sleep paralysis: no Hallucinations: denies Sleep fragmentation: denies Sleep attacks: yes Daytime sleepiness: yes Vivid dreams: unsure Driving: not driving Are naps refreshing?: sometimes Initial impression: This is 14 year old male who presents with concerns for ANGIE (loud snoring, witnessed pauses and gasping for air, strong family hx of ANGIE. Endo would like patient on growth hormone but mom is concerned about possible ANGIE. Discussed that there are no clear guidelines for screening for ANGIE in children starting growth hormone outside of genetic syndromes such as Prader Willi. Noted that in regards to treatment with other hormone, ie. testosterone, untreated ANGIE is a relative contraindication to initiating therapy. At least one case report, to my knowledge, has been published on ANGIE following initiation of growth hormone in a teen ( PMID: [id number] DOI:10.4172/0196-0350.1 [id number]). Another study followed 145 children after initiation of growth hormone and 4 developed ANGIE (PMID: 7774520 DOI: 10.1177/[id number] 602). I do think it would be prudent to obtain PSG prior to starting growth hormone to determine presence of ANGIE given his significant signs/symptoms. Reviewed ANGIE and its pathophysiology and briefly discussed treatment options if present. Will message my sleeve setter to see if we can facilitate Elaine getting into lab sooner rather than later as growth hormone only approved through [place]. ? Additionally, patient has excessive daytime sleepiness with an Jefferson of 17. Discussed with mom possible causes of excessive daytime sleepiness/hypersomnia such as untreated ANGIE, insufficient sleep (currently getting less than the 8-10 hrs recommended for age), or hypersomnia of central origin. Discussed with mom that she needs to work on increasing overnight sleep duration to 8-10 hrs per night, and if ANGIE present we will treat (likely with referral to ENT for eval). If hypersomnia persists, would need work up with actigraphy, PSG MSLT. Clinical course: Testing/studies: Sleep study completed 12/09/[address] [facility] [address] ([phone]) Efficiency 91% (413.5/453.5 min), STEPHANY 19 min REM latency 208 min, 3 hypop in rem and 8 in NREM, 2 central apnea, 1 obstructive apnea noted. AHI = 2, average SpO2 98% min SpO2 asleep 89%, PLM index 15.8 per hr, 4.2 events per hr causing arousals Impression: very mild ANGIE, the AHI was 2. No evidence of significant O2 desaturations. Elevated leg movement index of 15.8/hr, of uncertain clinical significance. Treatment/Management: n/a INTERIM SLEEP HISTORY: GI recommended periactin 4 mg to inc appetite. Was causing significantly sleepiness so mom halved dose to 2 mg. Started med around mid november 2019. Periactin has increased appetite and gaining weight. Given at 9 pm and asleep by 9:30 pm. Still wakes around 5-6 am to say bye to parents for the day they often goes back to sleep until 9-11 am. Seems groggy if sitting still for example watching tv. says he needs a nap if sitting still. Discussed concern for hypersomnia. Mom feels like sleepiness is reaction to medicines he is on. animal technician told mom he was restless in sleep lab Off adhd meds for summer - in school he was still sleepy when he came home after school but wasn't dozing in school. would want to doze after school but parents would keep him up Medications: Somatropin (NORDITROPIN FLEXPRO) 15 mg/1.5 mL (10 mg/mL) Inject 1.2 mg subcutaneously once daily. Dexmethylphenidate HCl (FOCALIN) 10 mg tablet Take 10 mg by mouth once daily. multivitamin tablet Take 1 tablet by mouth once daily. atomoxetine (STRATTERA) 18 mg capsule Take 25 mg by mouth once daily. Change in other medications: No Changes to Medical history, Surgical history, Family history, or Social history since last visit: No ROS GENERAL: not ill HEENT: No nasal congesion CV: No congenital heart disease or Hypertension RESP: No nocturnal coughing, SOB or Asthma GI: inc appetite w/ periactin : No bedwetting MUSCULOSKELETAL: No joint pain MANAGING BROKER: low tone ENDO: growth delay considering GH PSYCH: ADHD DEVELOPMENT: past delays MEDICATIONS: Somatropin (NORDITROPIN FLEXPRO) 15 mg/1.5 mL (10 mg/mL) Inject 1.2 mg subcutaneously once daily. Dexmethylphenidate HCl (FOCALIN) 10 mg tablet Take 10 mg by mouth once daily. multivitamin tablet Take 1 tablet by mouth once daily. atomoxetine (STRATTERA) 18 mg capsule Take 25 mg by mouth once daily. ALLERGIES: ALLERGIES Allergen Reactions - Gluten Unknown Gluten sensitivity PHYSICAL EXAM There were no vitals taken for this visit. No height and weight on file for this encounter. No blood pressure reading on file for this encounter. ASSESSMENT/PLAN: Encounter Diagnosis ICD-10-CM 1. Periodic limb movements of sleep G47.61 2. Obstructive sleep apnea syndrome G47.33 3. Excessive daytime sleepiness G47.19 This is 14 year old male who presented to sleep clinic with concerns for possible sleep apnea. Outside PSG shows AHI 2.0 (oAHI 1.7) which is borderline to mild sleep apnea. Spo2 jorge was 89%. Reviewed results w/ mom. Again, while no guidelines exist for PSG prior to growth hormone in pt without prader willi, this is overall a reassuring test. At this time just recommend to monitor symptoms while on growth hormone. If snoring increases or witnessed apneas, would consider repeat testing. Increased PLM index of 15.8 and PLM arousal index of 4.2 which can be contributing to restless sleep and daytime sleepiness. Has not had iron studies since 2015. Recent CBC showed slightly low hgb 12.8 Hct 36.9 with normal MCV. Will assess iron/ferritin and recommend supplementation if ferritin < 75. Discussed hypersomnia workup with mom. At this time, mom does not feel that sleepiness has significant impact on QOL. Recommend monitoring and returning if hypersomnia/excessive daytime sleepiness is problematic. Discussed this would involve weaning off any meds that affect sleep (ADHD meds and periactin) x 2 weeks, actigraphy x 2 weeks, then PSG/MSLT. Should monitor for improvement with treatment of periodic limb movements if iron is low. If ferritin at or near 75, can consider gabapentin though this would be sedating. Follow up based on results of iron labs. If low will recheck 3-4 months after supplementing I spent 20 minutes in the visit, with more than 50% of the total kfqi-sa-tkbu time of the visit in counseling / coordination of care. SIGNATURE: Aida Alcaraz MD PATIENT NAME: Elaine Singh DATE: December 30, 2019 TIME: 3:07 PM cc: [employer] Coding Summary.on 12-25-2019 Coding Summary. CODING DATE: 020 FINAL [facility] STATUS: Home (Routine DC) PAYOR: Commercial Insurance APC DESCRIPTION 5724 Level 4 Diagnostic Tests and Related Services ADMIT DX: REASON FOR VISIT DX: G47.9 Sleep disorder, unspecified FINAL DX: PRINCIPAL: G47.9 Sleep disorder, unspecified SECONDARY: PYMT PROC APC STAT DESCRIPTION DOCTOR NAME DATE NOTE: The code number assigned matches the documented diagnosis and / or procedure in the patient's chart. However, the narrative phrase printed from the coding software may appear abbreviated, or result in slightly different terminology. Coded By: Mckenzie Bailey CphT Date Saved: 12/25/2019 09:20 am [facility] Physician Orderon 12-24-2019 Physician Order [id number] CD:127 [facility] Sleep Studieson 12-14-2019 Sleep Studies [id number] CD:127 [facility] Consenton 12-10-2019 Consent [id number] CD:127 [facility] Physician Orderon 12-08-2019 Physician Order [id number] CD:127 [facility] Nonvisit Note - SLPon 2019 Nonvisit Note - DIESEL ENGINE TESTER Left VM about pediatric therapy closure for 30+ days. Normal [facility] Nonvisit Note - SLPon 2019 Nonvisit Note - DIESEL ENGINE TESTER Appt. cxl d/t patient being sick. Normal [facility] Nonvisit Note - DIESEL ENGINE TESTER Appt. cxl d/t patient being sick. [facility] Coding Summary.on 06-19-2019 Coding Summary. CODING DATE: 019 FINAL [facility] STATUS: PAYOR: Commercial Insurance ADMIT DX: REASON FOR VISIT DX: R48.2 Apraxia FINAL DX: PRINCIPAL: R48.2 Apraxia SECONDARY: PROCEDURES DOCTOR NAME DATE NOTE: The code number assigned matches the documented diagnosis and / or procedure in the patient's chart. However, the narrative phrase printed from the coding software may appear abbreviated, or result in slightly different terminology. Coded By: Mckenzie Bailey CphT Date Saved: 06/19/2019 08:54 am [facility] Vital Signs Date Time Vital Sign Value Performing Clinician Facility 02-06-2024 13:56-0400 Body height 170.18 cm [facility] 02-06-2024 13:56-0400 Body mass index (BMI) [Percentile] Per age and sex 0.3 % [facility] 02-06-2024 13:56-0400 Body mass index (BMI) [Ratio] 17.2 kg/m2 [facility] 02-06-2024 13:56-0400 Body weight 49.89 kg [facility] 02-06-2024 13:56-0400 Diastolic blood pressure 60 mm[Hg] [facility] 02-06-2024 13:56-0400 Heart rate 74 /min [facility] 02-06-2024 13:56-0400 Respiratory rate 16 /min [facility] 02-06-2024 13:56-0400 SaO2% (BldA) [Mass fraction] 96 % [facility] 02-06-2024 13:56-0400 Systolic blood pressure 102 mm[Hg] [facility] 07-30-2023 09:45-0500 Body height 172.1 cm Deidre Carrion MD Work Phone: [facility] 07-30-2023 09:45-0500 Body mass index (BMI) [Ratio] 16.45 kg/m2 Deidre Carrion MD Work Phone: [facility] 07-30-2023 09:45-0500 Body weight 48.72 kg Deidre Carrion MD Work Phone: [facility] 07-30-2023 09:45-0500 Diastolic blood pressure 60 mm[Hg] Deider Carrion MD Work Phone: [facility] 07-30-2023 09:45-0500 Heart rate 94 /min Deidre Carrion MD Work Phone: [facility] 07-30-2023 09:45-0500 SaO2% (BldA) [Mass fraction] 99 % Deidre Carrion MD Work Phone: [facility] 07-30-2023 09:45-0500 Systolic blood pressure 116 mm[Hg] Deidre Carrion MD Work Phone: [facility] 12-27-2021 16:16-0400 Body height 167.3 cm Deidre Nay Murali Work Phone: [facility]gil[facility]Zefnikpc H DO Work Phone: 12-27-2021 16:16-0400 Body mass index (BMI) [Ratio] 16.54 kg/m2 Deidre A Murali Work Phone: PB-Jcmorknys-Cxgmumdj H DO Work Phone: 12-27-2021 16:16-0400 Body surface area Derived from formula 1.5 m2 Deidre A Murali Work Phone: CP-Tsntgnrsv-Vmwbeshe H DO Work Phone: 12-27-2021 16:16-0400 Body temperature 97.6 [degF] Deidre A Murali Work Phone: GG-Efgzzkmzz-Namlyizv H DO Work Phone: 12-27-2021 16:16-0400 Body weight 46.3 kg Deidre A Murali Work Phone: TL-Jaeroocea-Vjgfrfdh H DO Work Phone: 12-27-2021 16:16-0400 Diastolic blood pressure 56 mm[Hg] Deidre A Murali Work Phone: UZ-Drhnummjp-Lwwhtzmj H DO Work Phone: 12-27-2021 16:16-0400 Heart rate 82 /min Deidre A Murali Work Phone: RT-Hxzsmjadp-Xsrygubs H DO Work Phone: 12-27-2021 16:16-0400 Systolic blood pressure 97 mm[Hg] Deidre A Murali Work Phone: QV-Ufnjjgikk-Ezumxyas H DO Work Phone: 12-27-2021 16:16-0400 12 1 Deidre A Murali Work Phone: HP-Fcsstkzns-Xtmeuegy H DO Work Phone: Comment on above: 2-20_SPerc 12-27-2021 16:16-0400 1 1 Deidre A Murali Work Phone: MR-Biwccuodf-Rtpzsdij H DO Work Phone: Comment on above: 2-20_WPerc BMIPerc 11-16-2021 14:35-0400 Body temperature 98.7 [degF] Deidre A Murali Work Phone: [facility] [address] Work Phone: 11-16-2021 14:35-0400 Body weight 47.35 kg Deidre A Murali Work Phone: [facility] [address] Work Phone: 11-16-2021 14:35-0400 1 1 Deidre A Murali Work Phone: [facility] [address] Work Phone: Comment on above: 2-20_WPerc 10-24-2020 15:07-0400 Body Temperature 99 [degF] Deidre Carrion [facility] Work Phone: Comment on above: Method: Temporal 10-24-2020 15:07-0400 Body weight 41.84 kg Deidre Carrion [facility] Work Phone: 10-24-2020 15:07-0400 1 1 Deidre Murali [facility] Work Phone: Comment on above: 2-20 Weight Percentile 03-02-2020 17:42-0400 BMI (Body Mass Index) 16.17 kg/m2 Tory Splawski UN-Ivinivpixm-Mnlmdm n ds Work Phone: 03-02-2020 17:42-0400 Body Temperature 96.9 [degF] Tory Splawski YT-Jyovclrnzq-M irelan ds Work Phone: 03-02-2020 17:42-0400 Body weight 37.6 kg Tory Splawski QD-Niwzftevww-Jp relan ds Work Phone: 03-02-2020 17:42-0400 BP Diastolic 44 mm[Hg] Tory Splawski HP-Ivyyumyrrj-Rb relan ds Work Phone: 03-02-2020 17:42-0400 BP Systolic 96 mm[Hg] Tory Splawski XS-Fwtedyrxme-Hm relan ds Work Phone: 03-02-2020 17:42-0400 BSA (Body Surface Area) 1.28 m2 Tory Splawski NG-Hjnyzicviv-Nlxmbu n ds Work Phone: 03-02-2020 17:42-0400 Height 152.5 cm Tory Splawski EE-Tqfgkexkbv-Mb relan ds Work Phone: 03-02-2020 17:42-0400 1 1 Tory Splawski VA-Amvrdvppih-Sv relan ds Work Phone: Comment on above: 2-20 Stature Percentile 2-20 Weight Percenti le BMI Percentile 09-04-2019 15:07-0500 BMI (Body Mass Index) 14.42 kg/m2 Tory Splawski GX-Crrlouujgc-Zlqvyb n ds Work Phone: 09-04-2019 15:07-0500 Body weight 32.45 kg Tory Splawski VW-Rlykmitzlh-Ue relan ds Work Phone: 09-04-2019 15:07-0500 BP Diastolic 59 mm[Hg] Tory Splawski TT-Bwjofmvhut-Eh relan ds Work Phone: 09-04-2019 15:07-0500 BP Systolic 104 mm[Hg] Tory Splawski SX-Skqesymfha-Os relan ds Work Phone: 09-04-2019 15:07-0500 BSA (Body Surface Area) 1.19 m2 Tory Splawski QI-Hyjsuomrum-Tbnkfp n ds Work Phone: 09-04-2019 15:07-0500 Height 150 cm Tory Splawski EM-Smuuxvgfuo-Kx relan ds Work Phone: 09-04-2019 15:07-0500 Pulse (Heart Rate) 100 /min Tory Splawski [facility] -Firelan ds Work Phone: 09-04-2019 15:07-0500 Pulse Oximetry 99 % Tory Splawski NH-Vmnxrvtwly-Ld relan ds Work Phone: 09-04-2019 15:07-0500 1 1 Tory Splawski TG-Wscgbviejc-Ro relan ds Work Phone: Comment on above: 2-20 Stature Percentile BMI Percentile 2-20 Weight Percenti le 09-02-2019 18:19-0500 BMI (Body Mass Index) 14.51 kg/m2 Max Wiznitzer DK-Xdwjymwbyo-Uzrcjk n ds Work Phone: 09-02-2019 18:19-0500 Body weight 32.65 kg Max Wiznitzer GL-Utanvldnso-Sg relan ds Work Phone: 09-02-2019 18:19-0500 BP Diastolic 59 mm[Hg] Max Wiznitzer DF-Vekzndkhfn-Nr relan ds Work Phone: 09-02-2019 18:19-0500 BP Systolic 112 mm[Hg] Max Wiznitzer OX-Ywpsaxalvv-Hz relan ds Work Phone: 09-02-2019 18:19-0500 BSA (Body Surface Area) 1.2 m2 Max Wiznitzer VX-Boamwwphls-Gqdrzz n ds Work Phone: 09-02-2019 18:19-0500 Height 150 cm Max Wiznitzer BM-Fmstbrqfsf-By relan ds Work Phone: 09-02-2019 18:19-0500 Pulse (Heart Rate) 74 /min Max Wiznitzer [facility] Work Phone: 09-02-2019 18:19-0500 1 1 Max Wiznitzer NS-Qfzhejbgun-Vv relan ds Work Phone: Comment on above: 2-20 Weight Percentile 2-20 Stature Percent ile BMI Percentile Encounters Encounter Date Encounter Type Care Provider Facility Start: 02-06-2024 End: 02-06-2024 ambulatory [facility] Work Phone: Start: 02-06-2024 End: 02-06-2024 Encounter for general adult medical examination without abnormal findings [facility] Start: 02-06-2024 End: 02-06-2024 Patient encounter procedure [facility] Work Phone: Start: 07-30-2023 End: 07-30-2023 ambulatory DEIDRE Tee [facility] Start: 07-30-2023 End: 07-30-2023 Encounter for routine child health examination without abnormal findings DEIDRE Tee [facility] Start: 07-30-2023 End: 07-30-2023 Patient encounter status Deidre Carrion MD Work Phone: [facility] Work Phone: Start: 07-30-2023 End: 07-30-2023 Periodic preventive med est patient 18-39 yrs Deidre Carrion MD Work Phone: [facility] Comment on above: Encounter for routin e child health examination without abnormal findings (Primary Dx); Low weight, pediatric, BMI less than 5th percentile for age; Chromosome 4d15-c15 microdeletion syndrome Start: 02-21-2022 Patient encounter procedure Deidre A Murali Work Phone: [facility] [address] Work Phone: Start: 12-27-2021 Office outpatient vi sit 15 minutes Deidre A Murali Work Phone: EL-Ciimudkghd-Fuunbbzj [address] Work Phone: Start: 12-27-2021 Patient encounter procedure Deidre A Murali Work Phone: KT-Cykbrnpbw-Sihmmwje H DO Work Phone: Start: 11-16-2021 Office outpatient vi sit 15 minutes Deidre A Murali Work Phone: [facility] [address] Work Phone: Start: 10-13-2021 End: 10-13-2021 Patient encounter procedure MD Deidre Carrion Work Phone: [facility] Start: 09-22-2021 Telephone encounter Deidre A Murali Work Phone: [facility] [address] Work Phone: Start: 06-16-2021 End: 06-16-2021 Subsequent hospital visit by physician Ana [facility] Comment on above: BMI (body mass index ), pediatric, less than 5th percentile for age [Z68.51] Start: 10-24-2020 End: 10-24-2020 ambulatory DEIDRE MURALI Facility: Start: 10-24-2020 Patient encounter procedure Deidre Olivaa [facility] Work Phone: Start: 08-31-2020 Patient encounter procedure Deidre Carrion [facility] Work Phone: Start: 07-29-2020 Patient encounter procedure Deidre Olivaa [facility] Work Phone: Start: 03-02-2020 Patient encounter procedure Tory Splclintonki [place]-Acxxhykmnv-Foqaypkcg Work Phone: Start: 11-27-2019 Patient encounter procedure Tory Splawski XU-Bseztnojsh-Koxrrdhiy Work Phone: Start: 09-04-2019 Patient encounter procedure Tory Splawski AU-Rltbrdrxlo-Leewdktfi Work Phone: Start: 09-02-2019 Patient encounter procedure Hung Amin SL-Hoaxywdlxx-Srlpsqrvs Work Phone: Start: 06-03-2019 Patient encounter procedure Deidre Olivaa [facility] Work Phone: Start: 11-19-2018 Patient encounter procedure Deidre Olivaa [facility] Work Phone: Start: 07-30-2018 Patient encounter procedure Hung Eloisa Facility:[id number] Start: 02-03-2018 Patient encounter procedure Deidre Olivaa Facility:[id number] Patient encounter status [facility] Work Phone: Procedures Date Procedure Procedure Detail Performing Clinician Start: 06-16-2021 Bone age studies Hao Wilkins MD Work Phone: Start: 09-04-2019 Calprotectin, Fecal Patsy y Splawski Start: 09-04-2019 Elastase pancreatic fecal qual/semi-loretta Tory Splawski Start: 09-04-2019 Fat stain feces urine/respir secretions Tory Splawsmohan Start: 09-04-2019 Iaad ia mult step me thod nos each organism Tory Splawsmohan Start: 09-04-2019 Sugars mono di&oligo s 1 qualitataive each spec Tory Splawski Adenoidectomy withou t tonsillectomy Deidre Murali History of Ear Press ure Equalization Tube, Insertion, Bilaterally Deidre Murali History of Surgery T unica Vaginalis Excision Of Hydrocele Left Deidre Murali Plan of Treatment Date Care Activity Detail Author Start: 2054 Zoster Vaccines (1 o f 2) Zoster Vaccines (1 of 2) [facility] Start: 10-31-2026 DTaP/Tdap/Td Vaccine s (7 - Td or Tdap) DTaP/Tdap/Td Vaccines (7 - Td or Tdap) [facility] Start: 03-15-2023 Influenza vaccination [facility] Start: 2022 HEPATITIS C SCREENING HEPATITIS C [facility] Start: 2022 Hepatitis C screening Hepatitis C [facility] Start: 2022 HIV SCREENING HIV SCREENING [facility] Start: 07-15-2022 DEPRESSION ASSESSMENT DEPRESSION ASS ESSMENT [facility] Start: 12-27-2021 FUV, Provider: Hung Amin, Status: Pen, Time: 4:00 PM FUV, Provider: Hung Amin, Status: Pen, Time: 4:00 PM [facility] [employer] [address] Work Phone: Start: 09-27-2021 BEHAVHFUV, Provider: Deidre Carrion, Status: Pen, Time: 3:50 PM BEHAVHFUV, Provider: Deidre Carrion, Status: Pen, Time: 3:50 PM [facility] [employer] [address] Work Phone: Start: 2020 MENINGOCOCCAL B: Consider based on risk (1 of 2 - Patient Seeks Protection) MENINGOCOCCAL B: Consider based on risk (1 of 2 - Patient Seeks Protection) [facility] Start: 2020 MENINGOCOCCAL CONJUGATE (1 - 2-dose series) MENINGOCOCCAL CONJUGATE (1 - 2-dose series) [facility] Start: 2018 PEDS TO ADULT TRANSITION ANNUAL ASSESSMENT PEDS TO ADULT TRANSITION ANNUAL ASSESSMENT [facility] Start: 2016 PEDS TO ADULT TRANSITION INITIAL DISCUSSION PEDS TO ADULT TRANSITION INITIAL DISCUSSION [facility] Start: 2015 HPV Vaccines (1 - Male 2-dose series) HPV Vaccines (1 - Male 2-dose series) [facility] Start: 2013 HPV VACCINE (1 - Mal e 2-dose series) HPV VACCINE (1 - Male 2-dose series) [facility] Start: 2011 Urine microalbumin profile DTAP,TDAP,TD (1 - Tdap) [facility] Start: 2007 Well Child Visit (WCV) - Annual Well Child Visit (WCV) - Annual [facility] Start: 03-24-2005 Application of denta l fluoride varnish Fluoride Varnish [facility] Start: 01-21-2005 COVID-19 VACCINE (#1) COVID-19 VACCI NE (#1) [facility] Start: 2004 Hearing Screening (#1) Hearing Screening (#1) [facility] Start: 2004 HEPATITIS B (1 of 3 - 3-dose series) HEPATITIS B (1 of 3 - 3-dose series) [facility] Start: 2004 HIV screening HIV Screening [facility] Start: 2004 Lipid panel Lipid Panel [facility] Work Phone: Dexmethylphenida te HCl ER 15 MG Oral Capsule Extended Release 24 Hour TAKE 1 CAPSULE Daily Ordered: 02-Apr-2020 Active SS-Rtzoexxshl-Abhkyg nds Work Phone: NEGATED: Highlighted row has been ruled out! Planned Goals not documented [facility] Work Phone: Immunizations Immunization Date Immunization Notes Care Provider Frank hewitt 02-21-2022 meningococcal oligosaccharide (groups A, C, Y and W-135) diphtheria toxoid conjugate vaccine (MCV4O); Translations: [Menveo Intramuscular Solution Reconstituted] Deidre Tee Murali Work Phone: [facility] [address] Work Phone: Comment on above: Series: 10-31-2016 tetanus toxoid, redu damian diphtheria toxoid, and acellular pertussis vaccine, adsorbed; Translations: [Tdap] [facility] Comment on above: Series: 10-31-2016 meningococcal polysaccharide (groups A, C, Y and W-135) diphtheria toxoid conjugate vaccine (MCV4P); Translations: [Menactra Intramuscular Injectable] [facility] Comment on above: Series: 10-28-2009 diphtheria, tetanus toxoids and acellular pertussis vaccine [facility] Comment on above: Series: 10-28-2009 measles, mumps and rubella virus vaccine [facility] Comment on above: Series: 10-28-2009 poliovirus vaccine, inactivated [facility] Comment on above: Series: 10-28-2009 varicella virus vaccine [facility] Comment on above: Series: 06-23-2007 influenza virus vacc ine, unspecified formulation [place] A Murali Work Phone: [facility] [address] Work Phone: Comment on above: Series: 06-23-2007 influenza, seasonal, injectable [place] Murali [facility] Work Phone: 10-25-2005 diphtheria, tetanus toxoids and acellular pertussis vaccine [facility] Work Phone: Comment on above: Series: 10-25-2005 haemophilus influenz ae type b vaccine, PRP-OMP conjugate [facility] Work Phone: Comment on above: Series: 10-25-2005 hepatitis B vaccine, adult dosage [facility] Work Phone: Comment on above: Series: 10-25-2005 measles, mumps and rubella virus vaccine [facility] Comment on above: Series: 07-26-2005 pneumococcal conjuga te vaccine, 7 valent [facility] Comment on above: Series: 07-26-2005 varicella virus vaccine [facility] Comment on above: Series: 01-29-2005 diphtheria, tetanus toxoids and acellular pertussis vaccine Deidre Murali [facility] Work Phone: Comment on above: Series: 01-29-2005 pneumococcal conjuga te vaccine, 7 valent Deidre Murali [facility] Comment on above: Series: 01-29-2005 poliovirus vaccine, inactivated Deidre Murali [facility] Work Phone: Comment on above: Series: 2004 diphtheria, tetanus toxoids and acellular pertussis vaccine Deidre Murali [facility] Work Phone: Comment on above: Series: 2004 haemophilus influenz ae type b vaccine, PRP-OMP conjugate Deidre Murali [facility] Work Phone: Comment on above: Series: 2004 hepatitis B vaccine, adult dosage Deidre Murali [facility] Work Phone: Comment on above: Series: 2004 pneumococcal conjuga te vaccine, 7 valent [facility] Comment on above: Series: 2004 [facility], [facility] above: Series: 2004 diphtheria, tetanus toxoids and acellular pertussis vaccine Deidre Murali [facility] Work Phone: Comment on above: Series: 2004 haemophilus influenz ae type b vaccine, PRP-OMP conjugate Deidre Murali [facility] Work Phone: Comment on above: Series: 2004 hepatitis B vaccine, adult dosage Deidre Murali [facility] Work Phone: Comment on above: Series: 2004 pneumococcal conjuga te vaccine, 7 valent [facility] Comment on above: Series: 2004 poliovirus vaccine, inactivated [facility] on above: Series: Payers Date Payer Category Payer Unknown 2021 Unknown [id number] 2008 Private Health Insurance [employer] Nay ETNA POS [id number] 2008-Present [phone] [address] [place] [address] POS [id number] 2004 Unknown [id number] 1977 Unknown [id number] 1977 Unknown [id number] 1977 Unknown [id number] 1959 Private Health Insurance [id number] Self-pay Self Pay [id number] Social History Date Type Detail Facility Assertion Unknown if ever smoked [facility] Work Phone: Start: 06-19-2020 End: 01-12-2021 Lives with parents Lives with parents [facility] [address] Work Phone: Start: 2004 Sex Assigned At Male F [facility] Start: 07-03-2019 End: 02-06-2024 Tobacco smoking status NHIS Never smoked tobacco [facility] Start: 07-03-2019 End: 07-30-2023 Tobacco use and exposure Smokeless tobacco non-user [facility] Start: 01-12-2021 Alcohol intake Not Asked Tushar atkins [facility] Start: 06-19-2020 End: 01-12-2021 Tobacco use panel [facility] National Score (1-100), lower number is lower risk Not on file [facility] Start: 2004 Sex Assigned At Not on file C [facility] Start: 05-16-2021 End: 07-30-2023 Exposure to SARS-CoV-2 (event) Not sure [facility] Functional Status Date Assessment Result Facility NEGATED: Highlighted row Functional performance Functional status health issues are not documented Disease [facility] Work Phone: Mental Status Date Assessment Result Facility NEGATED: Highlighted row Cognitive function [Interpretation] Cognitive status health issues are not documented [facility] Work Phone: Clinical Notes 01-12-2021 to 07-30-2023 Deidre Carrion MD - 07/30/2023 9:50 AM ESTPatient Instructions Note Date & Type Note Facility 07-30-2023 History of Present illness Narrative Subjective Patient ID: Elaine Singh is a 18 y.o. male who presents with mother for Well Child (18 year [facility]). HPI Parental Concerns Raised Today Include: none General Health: Elaine overall is in good health. He has graduated from high school. The parents are connected to [facility] of developmental disabilities. 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 He no longer sees Dr. Amin. He is off all medications and seems to being doing well. He does not seem overly anxious. Diet: Trying to maintain balance - he does pretty decent with encouragement. He does eat with encouragement Fruits/Veggies/Protein Beverages are non-sweetened Calcium source is adequate Sleep: patterns are disrupted currently. 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 Dental Care: Elaine has a dental home and dental hygiene is regularly performed Elaine has not had any serious prior vaccine reactions. Review of Systems Objective BP 116/60 Pulse 94 Ht 1.721 m (5' 7.75 ) Wt 48.7 kg (107 lb 6.4 oz) SpO2 99% BMI 16.45 kg/m Physical Exam Vitals and nursing note reviewed. Exam conducted with a secured entrance monitor present. Constitutional: General: He is not in acute distress. Appearance: Normal appearance. He is normal weight. HENT: Head: Normocephalic. Right Ear: Tympanic membrane, ear canal and external ear normal. Left Ear: Tympanic membrane and ear canal normal. Nose: Nose normal. No rhinorrhea. Mouth/Throat: Mouth: Mucous membranes are moist. Pharynx: Oropharynx is clear. No oropharyngeal exudate or posterior oropharyngeal erythema. Eyes: Extraocular Movements: Extraocular movements intact. Conjunctiva/sclera: Conjunctivae normal. Pupils: Pupils are equal, round, and reactive to light. Cardiovascular: Rate and Rhythm: Normal rate and regular rhythm. Pulses: Normal pulses. Heart sounds: Normal heart sounds. No murmur heard. Pulmonary: Effort: Pulmonary effort is normal. Breath sounds: Normal breath sounds. Abdominal: General: Abdomen is flat. Bowel sounds are normal. Palpations: Abdomen is soft. Genitourinary: Penis: Normal. Testes: Normal. Musculoskeletal: General: Normal range of motion. Cervical back: Normal range of motion. Thoracic back: No scoliosis. Lumbar back: No scoliosis. Lymphadenopathy: Cervical: No cervical adenopathy. Skin: General: Skin is warm and dry. Neurological: General: No focal deficit present. Mental Status: He is alert and oriented to person, place, and time. Gait: Gait normal. Psychiatric: Mood and Affect: Mood normal. Behavior: Behavior normal. Assessment/Plan Diagnoses and all orders for this visit: Encounter for routine child health examination without abnormal findings Low weight, pediatric, BMI less than 5th percentile for age Chromosome [id number] microdeletion syndrome Patient Instructions Good to see you today! Discussed transitioning to an adult care medical professional. The parents are exploring options of guardianship and variations of this so as to keep the door of possibilities open for the future and yet being able to help him with finances and medical decision making currently and in the near future. Continue to encourage good health habits for him - Good Nutrition - Eat more REAL FOODS rather than Fake Foods each day Movement for at least an hour a day. Good Sleeping habits to recharge your body and for regulation. This may be difficult until he has a regular schedule again. documented in this encounter [facility] Work Phone: 07-30-2023 Instructions Deidre Carrion MD - 07/30/2023 9:50 AM EST Good to see you today! Discussed transitioning to an adult care medical professional. The parents are exploring options of guardianship and variations of this so as to keep the door of possibilities open for the future and yet being able to help him with finances and medical decision making currently and in the near future. Continue to encourage good health habits for him - Good Nutrition - Eat more REAL FOODS rather than Fake Foods each day Movement for at least an hour a day. Good Sleeping habits to recharge your body and for regulation. This may be difficult until he has a regular schedule again. documented in this encounter [facility] Work Phone: 06-16-2021 Note HNO ID: [id number] Author: RT Tyree(R) Service: ? Author Type: Technologist Type: Progress Notes Filed: 06/16/2021 4:25 PM Note Text: Radiology Service Progress Note PATIENT NAME: Elaine Singh DATE OF SERVICE: June 16, 2021 TIME: 4:25 PM PATIENT IDENTITY VERIFICATION COMPLETED USING TWO (2) IDENTIFIERS: Name and Date of confirmed by patient verbally. FALL SCREENING: Has the patient had 2 falls in the last year or 1 fall with injury or currently using an Ambulatory Assistive Device (Walker, Cane, Wheelchair, Crutches, etc.)? No PATIENT GENDER DATA: Male PATIENT RELEVANT IMPLANT DATA REVIEWED: Not Applicable RADIOLOGY DEPARTMENT: General X-ray: Exam(s) Completed: Upper Extremity X-Ray(s): Hand, left bone age PERIPHERAL IV DATA: Not applicable SIGNED BY: RT Tyree(R) June 16, 2021 4:25 PM [facility] 01-12-2021 Note HNO ID: [id number] Author: Hao Wilkins MD Service: ? 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 Past evaluations For (or likely affecting) growth include: -assessed by Dr Elizondo over 3 years ago (Jun 2015)-- initial screening was WNL. -previously evaluated by Dr Sanchez (peds GI at )-- scope confirmed celiac; has been on gluten free diet x2yrs; have not been seen by GI in many years -on ADHD meds since age 7y; last time meds with titrated was 2yrs -UDT and hydrocele requring orchidopexand hydrocelectomy y in 2014 -had recent followup with adult care manager Dr Mixon in 2019 (who referred to endo); he notes In addition, reviewed that based on 2017 ASCO publication, promoter region variants in PTEN gene have not been associated with increased risk of cancer. Hence by current evidence based guidelines, GH therapy in not contraindicated for Elaine. Jul 2019- initial endo consult with Dr Wilkins. AGA. Obie 2 with Right teste ~6-8 cc with papable bogginess likely consistent with hydrocele; left teste ~5-6cc with soft/mushy consistency Aug 2019- seen by urology October 2019- mom expressed concern re snoring and previous inconclusive sleep study. We agreed to do sleep study before starting rGH December 2019- sleep study completed. As per Dr Nam's note from December 30, 2019: Outside PSG shows AHI 2.0 (oAHI 1.7) which is borderline to mild sleep apnea. Spo2 jorge was 89%. Reviewed results w/ mom. Again, while no guidelines exist for PSG prior to growth hormone in pt without prader willi, this is overall a reassuring test. At this time just recommend to monitor symptoms while on growth hormone. If snoring increases or witnessed apneas, would consider repeat testing. .... Recommend monitoring and returning if hypersomnia/excessive daytime sleepiness is problematic. Discussed this would involve weaning off any meds that affect sleep (ADHD meds and periactin) x 2 weeks, actigraphy x 2 weeks, then PSG/MSLT. Jun 2020- GV 9.1cm/y Interval Hx: Last visit was consultation in Jun 2020. he has been on growth hormone supplementation since December 2019 (delayed start due to sleep study he has been doing well since then and he or his parent(s) do not have any active concerns at this time. Growth velocity since last visit 10 Cm/year (compared to [facility] 2019 height) -- this is >97%ile for age/sex-- height is currentl y at 8 %ile (Z= -1.44) -parents note he is getting taller; needing new clothes because pants short etc Growth hormone: Product: Norditropin Dose: 1.6 mg IM dailyx 6 days a week (0.25 mg/kg/week) Dose administered by: parents Issues with injection: none Doses missed per week: none GH ROS Headaches: no Hip pain: no Knee pain: no Jaw pain: no Polyuria: no Polydipsia: no Headaches: no Change in vision: no Pain abdomen: no Labs: Last IGF 1 done: Jul 2019 prior to starting rGH Last Bone Age X ray: Jul 2019 prior to starting rGH +vit D insufficiency-- advised 1999iu OTC-- mom does not recall hearing this so hasn't started yet +low BMI-- advised to FU with Dr Sanchez at Puberty continues to progress; there was a discrepency between bone age (delayed) and pubertal status but gonadotropins and testosterone levels appropriate. 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 No current facility-administered medications on file prior to visit. Allergies ALLERGIES Allergen Reactions - Gluten Unknown Gluten sensitivity Family History FAMILY HISTORY Problem Relation Age of Onset - oth (more content not included)... [facility] Evaluation note No assessment inform ation available [facility] Work Phone: Evaluation note Diagnosis BMI (body mass index), pediatric, less than 5th percentile for age Body Mass Index, pediatric, less than 5th percentile for age Delayed bone age Other disorders of bone and cartilage Short [facility] Encounter for routine child health examination without abnormal findings- Primary Low weight, pediatric, BMI less than 5th percentile for age Chromosome [id number] microdeletion syndrome documented in this encounter [facility] Work Phone: Evaluation note* Diagnosis Onset Date Resolution Status Well adult exam noneactive [facility] Work Phone: History of Present illness Narrative* Elaine is a 15 year old boy with ADHD and anxiety. He is off sertraline 25 mg and dexmethylphenidate ER 15 mg qAM He is able to attend in school with the more relaxed classroom environment. He speaksin a soft voice. He interacts with classmates. He picks at his cuticles or knuckles. * Elaine had episode of staring with no response during a speech therapy group session. Subsequent EEG was normal. * Elaine goes to bed around 10:30 PM with sleep onset soon afterwards. He gets up at 5 AM (when father going to work) and falls back to sleep on the couch, getting up at 6 AM for school. He wants to nap after school. He moves a lot in sleep and is crabby when awakening. He had a sleep study for snoring that was reportedly normal. He continues to have excessive daytime sleepiness. * Elaine finished 11th grade in a self contained classroom and an IEP with in person classes this school year. 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 [id number] Work Phone: History of Present illness Narrative* Elaine is a 15 year old boy with ADHD and anxiety. He is off sertraline 25 mg and dexmethylphenidate ER 15 mg qAM He is able to attend in school with the more relaxed classroom environment. He speaksin a soft voice. He interacts with classmates. He picks at his cuticles or knuckles. * Elaine had episode of staring with no response during a speech therapy group session. Subsequent EEG was normal. * Elaine goes to bed around 10:30 PM with sleep onset soon afterwards. He gets up at 5 AM (when father going to work) and falls back to sleep on the couch, getting up at 6 AM for school. He wants to nap after school. He moves a lot in sleep and is crabby when awakening. He had a sleep study for snoring that was reportedly normal. He continues to have excessive daytime sleepiness. * Elaine finished 11th grade in a self contained classroom and an IEP with in person classes this school year. 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 [facility] Work Phone: History of Present illness Narrative* Elaine is a 15 year old boy with ADHD and anxiety. He is off sertraline 25 mg and dexmethylphenidate ER 15 mg qAM He is able to attend in school with the more relaxed classroom environment. He speaksin a soft voice. He interacts with classmates. He picks at his cuticles or knuckles. * Elaine had episode of staring with no response during a speech therapy group session. Subsequent EEG was normal. * Elaine goes to bed around 10:30 PM with sleep onset soon afterwards. He gets up at 5 AM (when father going to work) and falls back to sleep on the couch, getting up at 6 AM for school. He wants to nap after school. He moves a lot in sleep and is crabby when awakening. He had a sleep study for snoring that was reportedly normal. He continues to have excessive daytime sleepiness. * Elaine finished 11th grade in a self contained classroom and an IEP with in person classes this school year. He has a 3o20-35 deletion on genetic testing. [id number] Work Phone: History of Present illness Narrative* Elaine is a 15 year old boy with ADHD and anxiety. He is off sertraline 25 mg and dexmethylphenidate ER 15 mg qAM He is able to attend in school with the more relaxed classroom environment. He speaksin a soft voice. He interacts with classmates. He picks at his cuticles or knuckles. * Elaine had episode of staring with no response during a speech therapy group session. Subsequent EEG was normal. * Elaine goes to bed around 10:30 PM with sleep onset soon afterwards. He gets up at 5 AM (when father going to work) and falls back to sleep on the couch, getting up at 6 AM for school. He wants to nap after school. He moves a lot in sleep and is crabby when awakening. He had a sleep study for snoring that was reportedly normal. He continues to have excessive daytime sleepiness. * Elaine finished 11th grade in a self contained classroom and an IEP with in person classes this school year. 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 [facility] Work Phone: Instructions* Name Dates Details Instructions not documented [id number] Work Phone: Summary Purpose Family History Unknown Family Member Name Dates Details Family history of type 2 valerio betes mellitus(V18.0, Z83.3) Comments:Paternal Relatives Status:Active Family history of cardiac di sorder(V17.49, Z82.49) Comments:Multiple Family Mem bers Status:Active uncle Name Dates Details Family history of asthma(V17 .5, Z82.5) Status:Active Mother Name Dates Details Family history of migraine h eadaches(V17.2, Z82.0) Status:Active Unknown Family Member Name Dates Details Family history of type 2 valerio betes mellitus(V18.0, Z83.3) Comments:Paternal Relatives Status:Active Family history of cardiac di sorder(V17.49, Z82.49) Comments:Multiple Family Mem bers Status:Active uncle Name Dates Details Family history of asthma(V17 .5, Z82.5) Status:Active Mother Name Dates Details Family history of migraine h eadaches(V17.2, Z82.0) Status:Active Unknown Family Member Name Dates Details Family history of type 2 valerio betes mellitus(V18.0, Z83.3) Comments:Paternal Relatives Status:Active Family history of cardiac di sorder(V17.49, Z82.49) Comments:Multiple Family Mem bers Status:Active aunt Name Dates Details Family history of systemic l upus erythematosus(V19.4, Z82.69) Status:Active uncle Name Dates Details Family history of asthma(V17 .5, Z82.5) Status:Active Mother Name Dates Details Family history of migraine h eadaches(V17.2, Z82.0) Status:Active Unknown Family Member Name Dates Details Family history of type 2 valerio betes mellitus(V18.0, Z83.3) Comments:Paternal Relatives Status:Active Family history of cardiac di sorder(V17.49, Z82.49) Comments:Multiple Family Mem bers Status:Active aunt Name Dates Details Family history of systemic l upus erythematosus(V19.4, Z82.69) Status:Active uncle Name Dates Details Family history of asthma(V17 .5, Z82.5) Status:Active Mother Name Dates Details Family history of migraine h eadaches(V17.2, Z82.0) Status:Active Unknown Family Member Name Dates Details Family history of type 2 valerio betes mellitus(V18.0, Z83.3) Comments:Paternal Relatives Status:Active Family history of cardiac di sorder(V17.49, Z82.49) Comments:Multiple Family Mem bers Status:Active aunt Name Dates Details Family history of systemic l upus erythematosus(V19.4, Z82.69) Status:Active uncle Name Dates Details Family history of asthma(V17 .5, Z82.5) Status:Active Mother Name Dates Details Family history of migraine h eadaches(V17.2, Z82.0) Status:Active Unknown Family Member Name Dates Details Family history of type 2 valerio betes mellitus(V18.0, Z83.3) Comments:Paternal Relatives Status:Active Family history of cardiac di sorder(V17.49, Z82.49) Comments:Multiple Family Mem bers Status:Active aunt Name Dates Details Family history of systemic l upus erythematosus(V19.4, Z82.69) Status:Active uncle Name Dates Details Family history of asthma(V17 .5, Z82.5) Status:Active Mother Name Dates Details Family history of migraine h eadaches(V17.2, Z82.0) Status:Active Unknown Family Member Name Dates Details Family history of type 2 valerio betes mellitus(V18.0, Z83.3) Comments:Paternal Relatives Status:Active Family history of cardiac di sorder(V17.49, Z82.49) Comments:Multiple Family Mem bers Status:Active aunt Name Dates Details Family history of systemic l upus erythematosus(V19.4, Z82.69) Status:Active uncle Name Dates Details Family history of asthma(V17 .5, Z82.5) Status:Active Mother Name Dates Details Family history of migraine h eadaches(V17.2, Z82.0) Status:Active Unknown Family Member Name Dates Details Family history of type 2 valerio betes mellitus(V18.0, Z83.3) Comments:Paternal Relatives Status:Active Family history of cardiac di sorder(V17.49, Z82.49) Comments:Multiple Family Mem bers Status:Active aunt Name Dates Details Family history of systemic l upus erythematosus(V19.4, Z82.69) Status:Active uncle Name Dates Details Family history of asthma(V17 .5, Z82.5) Status:Active Mother Name Dates Details Family history of migraine h eadaches(V17.2, Z82.0) Status:Active Unknown Family Member Name Dates Details Family history of type 2 valerio betes mellitus(V18.0, Z83.3) Comments:Paternal Relatives Status:Active Family history of cardiac di sorder(V17.49, Z82.49) Comments:Multiple Family Mem bers Status:Active aunt Name Dates Details Family history of systemic l upus erythematosus(V19.4, Z82.69) Status:Active uncle Name Dates Details Family history of asthma(V17 .5, Z82.5) Status:Active Mother Name Dates Details Family history of migraine h eadaches(V17.2, Z82.0) Status:Active Unknown Family Member Name Dates Details Family history of type 2 valerio betes mellitus: Paternal Relatives(V18.0, Z83.3) Status:Active Family history of cardiac di sorder: Multiple Family Members(V17.49, Z82.49) Status:Active Family history of asthma: Pa ternal Uncle(V17.5, Z82.5) Status:Active Family history of migraine h eadaches: Mother(V17.2, Z82.0) Status:Active Family history of systemic l upus erythematosus: Maternal Aunt(V19.4, Z82.69) Status:Active Unknown Family Member Name Dates Details Family history of systemic l upus erythematosus: Maternal Aunt(V19.4, Z82.69) Status:Active Family history of migraine h eadaches: Mother(V17.2, Z82.0) Status:Active Family history of asthma: Pa ternal Uncle(V17.5, Z82.5) Status:Active Family history of cardiac di sorder: Multiple Family Members(V17.49, Z82.49) Status:Active Family history of type 2 valerio betes mellitus: Paternal Relatives(V18.0, Z83.3) Status:Active Unknown Family Member Name Dates Details Family history of systemic l upus erythematosus: Maternal Aunt(V19.4, Z82.69) Status:Active Family history of migraine h eadaches: Mother(V17.2, Z82.0) Status:Active Family history of asthma: Pa ternal Uncle(V17.5, Z82.5) Status:Active Family history of cardiac di sorder: Multiple Family Members(V17.49, Z82.49) Status:Active Family history of type 2 valerio betes mellitus: Paternal Relatives(V18.0, Z83.3) Status:Active Unknown Family Member Name Dates Details Family history of type 2 valerio betes mellitus: Paternal Relatives(V18.0, Z83.3) Status:Active Family history of cardiac di sorder: Multiple Family Members(V17.49, Z82.49) Status:Active Family history of asthma: Pa ternal Uncle(V17.5, Z82.5) Status:Active Family history of migraine h eadaches: Mother(V17.2, Z82.0) Status:Active Family history of systemic l upus erythematosus: Maternal Aunt(V19.4, Z82.69) Status:Active Unknown Family Member Name Dates Details Family history of type 2 valerio betes mellitus: Paternal Relatives(V18.0, Z83.3) Status:Active Family history of cardiac di sorder: Multiple Family Members(V17.49, Z82.49) Status:Active Family history of asthma: Pa ternal Uncle(V17.5, Z82.5) Status:Active Family history of migraine h eadaches: Mother(V17.2, Z82.0) Status:Active Family history of systemic l upus erythematosus: Maternal Aunt(V19.4, Z82.69) Status:Active Unknown Family Member Name Dates Details Family history of systemic l upus erythematosus: Maternal Aunt(V19.4, Z82.69) Status:Active Family history of migraine h eadaches: Mother(V17.2, Z82.0) Status:Active Family history of asthma: Pa ternal Uncle(V17.5, Z82.5) Status:Active Family history of cardiac di sorder: Multiple Family Members(V17.49, Z82.49) Status:Active Family history of type 2 valerio betes mellitus: Paternal Relatives(V18.0, Z83.3) Status:Active Unknown Family Member Name Dates Details Family history of systemic l upus erythematosus: Maternal Aunt(V19.4, Z82.69) Status:Active Family history of migraine h eadaches: Mother(V17.2, Z82.0) Status:Active Family history of asthma: Pa ternal Uncle(V17.5, Z82.5) Status:Active Family history of cardiac di sorder: Multiple Family Members(V17.49, Z82.49) Status:Active Family history of type 2 valerio betes mellitus: Paternal Relatives(V18.0, Z83.3) Status:Active Relationship Condition Age at Onset Recorded Date/T sherwin maternal grandmother Heart disease Unknown Advance Directives Advance Directive Response Recorded Date/ Time Advance Directives No February 05 1:33pm Chief Complaint and Reason for Visit Chief Complaint q93.88 Chief Complaint est care Reason for Visit Well adult exam Chief Complaint * Patient here for follow up visit. * Accompanied by mother. * Patient here for follow up visit. * Accompanied by mother. * Patient here for follow up visit. * Accompanied by mother. Here for Menveo #2 with Mom. Waited in room x 15 min. with no adverse effects.* Patient here for follow up visit. * Accompanied by mother. Additional Source Comments (unrecognized sect ion and content) No Status Records FoundNo Status Records FoundNo Status Records FoundNo Status Records FoundNo Status Records FoundNo Status Records FoundNo Status Records FoundNo Status Records FoundNo Status Records Found INFORMATION SOURCE (unrecogn ized section and content) DATE CREATED AUTHOR 08/05/2018 [facility] DATE CREATED AUTHOR AUTHOR'S ORGANIZ ATION 12/30/2019 [facility] DATE CREATED AUTHOR AUTHOR'S ORGANIZ ATION 05/25/2020 [facility] [facility] DATE CREATED AUTHOR AUTHOR'S ORGANIZ ATION 06/15/2020 [facility] DATE CREATED AUTHOR AUTHOR'S ORGANIZ ATION 11/01/2020 [facility] DATE CREATED AUTHOR AUTHOR'S ORGANIZ ATION 11/25/2021 [facility] DATE CREATED AUTHOR AUTHOR'S ORGANIZ ATION 12/10/2021 [facility] DATE CREATED AUTHOR AUTHOR'S ORGANIZ ATION 01/08/2022 [employer] DATE CREATED AUTHOR AUTHOR'S ORGANIZ ATION 07/31/2023 [facility] [employer] Teams (unrecognized sec tion and content) Team Status: Inactive Member Role Status Dates Deidre Carrion MD Primary Care Provider Active Hung Amin MD Attending Provider Active Team Status: Active Member Role Status Dates Deidre Carrion MD Primary Care Provider Active Physical Education Instructor Relationship Specialty Start Date End Date Deidre Carrion PCP - General Pediatrics 08/06/14 Physical Education Instructor Relationship Specialty Start Date End Date Deidre Carrion MD [address] [facility] [place] [address] PCP - General 10/29/13 [place] [address] [place] [address] PCP - Michel GUYO PCP 02/12/22 Team Status: Active Member Role Status Dates Bk Crowell DO Primary Care Provider Active Team Status: Inactive Member Role Status Dates Bk Crowell , Primary Care Provid er, Attending Provider Active Start: February 06, 2024 End: February 06, 2024 Goals (unrecognized section and content) Goals may be documented in a n alternate sectionGoals may be documented in an alternate section Source Comments (unrecognize d section and content) In the event this informatio n is protected by the Federal Confidentiality of Alcohol and Drug Abuse Patient Records regulations: The Federal rules restrict any use of the information to criminally investigate or prosecute any alcohol or drug abuse patient[facility] Reason for Visit (unrecogniz ed section and content) Reason Comments Well Child 18 year [facility] FOR RECORDS PERTAINING TO PATIENTS WHO ARE OR HAVE BEEN ENROLLED IN A CHEMICAL DEPENDENCY/SUBSTANCEABUSE PROGRAM, SOME INFORMATION MAY BE OMITTED. This clinical summary was aggregated from multiple sources. Caution should be exercised in using it in the provision of clinical care. This summary normalizes information from multiple sources, and as a consequence, information in this document may materially change the coding, format and clinical context of patient data. In addition, data may be omitted in some cases. CLINICAL DECISIONS SHOULD BE BASED ON THE PRIMARY CLINICAL RECORDS. [employer] [facility]. provides no warranty or guarantee of the accuracy or completeness of information in this document.
--- NOTE | 2024-07-13 06:16 | PC.NURSE ---
Patient is scheduled to have dental procedure done next week under general anesthesia. He started having pain on . Mom called the dentist who told her to give him Ibuprofen. This morning he woke up in pain again and the right side of his face is swolleen. Mom is afraid he has an infection, and she wants it treated before his procedure. The dentist office is closed this week.
--- NOTE | 2024-07-13 06:25 | ED_ITS ---
HPI - Dental/Oral General Chief complaint: Dental/Oral Stated complaint: FACIAL SWELLING Time Seen by Provider: 07/13/24 06:20 Source: patient Mode of arrival: walk-in Limitations: no limitations History of Present Illness HPI Narrative: 18-year-old male presents with mother to ED for dental issue and facial swelling. It started today. He is scheduled on July 29 to be sedated for a good exam and possible dental work. He is known to have dental caries. No fever or difficulty breathing or swelling. Related Data Previous Rx's ?Medication ?Instructions ?Recorded ibuprofen 600 mg tablet 600 mg PO Q8H PRN pain #10 tabs 06/12/24 penicillin V potassium 250 mg 250 mg PO QID 10 days #40 tabs 07/13/24 tablet Allergies Allergy/AdvReac Type Severity Reaction Status Date / Time No Known Drug Allergies Allergy Verified 07/13/24 06:09 Review of Systems ROS Narrative A ten point review of systems is negative except as noted above. Exam Narrative Exam Narrative: Nurses note and vital signs reviewed and patient is not hypoxic. General: The patient appears well and in no apparent distress. Patient is resting comfortably on cart. Skin: Warm, dry, no pallor noted. There is no rash noted. Head: Normocephalic, atraumatic Eye: Normal conjunctiva, no drainage Ears, Nose, Mouth, and Throat: oral mucosa is moist. Nares patent. He has swelling on the right jaw area. Dental caries is noted on the right side. No bleeding or pus present. No swelling to the floor of his mouth and he is handling his oral secretions well. Cardiovascular: Regular Rate and Rhythm Respiratory: Patient is in no distress, no accessory muscle use, lungs are clear to auscultation, no wheezing, rales or rhonchi GI: Soft and nontender Musculoskeletal: All joints have full range of motion Neurological: A&O, normal speech Psychiatric: Cooperative Constitutional Vital Signs, click to edit/add: Last Vital Signs Temp 98.4 F 07/13/24 06:04 Pulse 66 07/13/24 06:04 Resp 16 07/13/24 06:04 BP 120/78 07/13/24 06:04 Pulse Ox 96 07/13/24 06:04 O2 Del Method Room Air 07/13/24 06:04 Course Vital Signs Vital signs: Vital Signs Temperature 98.4 F 07/13/24 06:04 Pulse Rate 66 07/13/24 06:04 Respiratory Rate 16 07/13/24 06:04 Blood Pressure 120/78 07/13/24 06:04 Pulse Oximetry 96 07/13/24 06:04 Oxygen Delivery Method Room Air 07/13/24 06:04 Temperature 98.4 F 07/13/24 06:04 Pulse Rate 66 07/13/24 06:04 Respiratory Rate 16 07/13/24 06:04 Blood Pressure 120/78 07/13/24 06:04 Pulse Oximetry 96 07/13/24 06:04 Oxygen Delivery Method Room Air 07/13/24 06:04 MDM - Dental/Oral MDM Narrative Medical decision making narrative: He was given IM Ancef and prescribed penicillin. Treatment diagnosis and follow-up were discussed with his mother. Differential Diagnosis Differential diagnosis: Likely gingival abscess, dental caries, toothache and dental abscess Discharge Plan Discharge Chief Complaint: Dental/Oral Clinical Impression: Dental caries Patient Disposition: Home, Self-Care Time of Disposition Decision: 06:23 Condition: Good Mode of Transportation: Private Vehicle Prescriptions / Home Meds: New penicillin V potassium 250 mg tablet 250 mg PO QID 10 Days Qty: 40 0RF No Action ibuprofen 600 mg tablet 600 mg PO Q8H PRN (Reason: pain) Qty: 10 0RF Print Language: Occitan Instructions: Dental Abscess (ED), Toothache (ED) Additional Instructions: Follow-up with your dentist Referrals: CRISTIAN COLLINS [Primary Care Provider] - 1 week
[2024-07-13] MEDS: CEFAZOLIN SODIUM 1,000 MG, WATER FOR INJECTION,STERILE 2.5 ML IM (07:04)
== END 2024-07-13 07:08 | disposition home or self-care (01) ==
PROVIDERS: Emergency Provider Emergency Medicine; PCP Family Medicine
DX: K02.9 Dental caries, unspecified (principal)
CPT/HCPCS: 99284; J0690